=== PATIENT | female | born 1950 | race Caucasian/White ===

== ENCOUNTER → 2016-05-15 | Outpatient (CLI) | payer BC ==
[~2016-05-15] MED LIST: AMBCR125 PO; DRV100 PO; HYCUDL5 PO; LAMO100T16 PO; OXYC1TAB3 PO; PRLSR20 PO; SERT-234 PO; VERA180T15 PO
[2016-05-15 17:20] LABS: THYROID STIMULATING HORMONE 1.38 uIu/ml (0.300-4.500)
== END | disposition home or self-care (01) ==
LOC: C.LABBC 12:57
PROVIDERS: ATTEND Psychiatry & Neurology Child & Adolescent Psychiatry
DX: F33.1 Major depressive disorder, recurrent, moderate (principal)

== ENCOUNTER → 2016-08-01 | Outpatient (CLI) | payer BC ==
[~2016-08-01] MED LIST changes: -OXYC1TAB3 PO
[2016-08-01 14:12] LABS: HEMATOCRIT 41.5 % (37-47); MEAN CELL VOLUME 83.2 fL (80-100); MEAN CORPUSCULAR HEMOGLOBIN 29.3 pg (25-34); MEAN CORPUSCULAR HGB CONC 35.2 g/dl (32-36); MEAN PLATELET VOLUME 9.6 fL (7.4-10.4); PLATELET COUNT 265 K/uL (130-400); RED BLOOD COUNT 4.99 M/uL (4.2-5.4); WHITE BLOOD COUNT 4.84 K/uL (4.8-10.8)
[2016-08-01 14:30] LABS: ALT/SGPT 37 U/L (12-78); BLOOD UREA NITROGEN 13 mg/dl (7-18); BUN/CREATININE RATIO 12.5 (10-20); CALCIUM 8.7 mg/dl (8.5-10.1); CARBON DIOXIDE 26 mmol/L (21-32); CHLORIDE 109 mmol/L (98-107); CHOLESTEROL 223 mg/dl (0-200); GLUCOSE 97 mg/dl (70-99); POTASSIUM 3.5 mmol/L (3.5-5.1); SODIUM 143 mmol/L (136-145); TRIGLYCERIDES 127 mg/dl (0-150); VERY LOW DENSITY LIPOPROT CALC 25 mg/dl
[2016-08-01 14:37] LABS: ALB/GLOB RATIO 1.2 (0.9-2); ALKALINE PHOSPHATASE 106 U/L (45-117); AST/SGOT 19 U/L (15-37); CHOLESTEROL/HDL RATIO 2.8; HDL CHOLESTEROL 81 mg/dl; LDL CHOLESTEROL CALCULATED 117 mg/dl
== END | disposition home or self-care (01) ==
LOC: C.LABBC 10:45
PROVIDERS: ATTEND Family Medicine
DX: E78.00 Pure hypercholesterolemia, unspecified (principal); E03.9 Hypothyroidism, unspecified; M79.7 Fibromyalgia; I10 Essential (primary) hypertension

== ENCOUNTER → 2016-08-07 | Outpatient (CLI) | payer BC ==
[2016-08-07 19:05] LABS: URINE APPEARANCE CLEAR (CLEAR); URINE BILIRUBIN NEG (NEG); URINE COLOR YELLOW; URINE EPITHELIAL CELL AUTO 20-30 /lpf (0-5); URINE NITRITE POS (NEG); URINE SPECIFIC GRAVITY 1.025 (1.000-1.030); UROBILINOGEN NEG (NEG)
[2016-08-07 19:18] LABS: MANUAL MICROSCOPIC REQUIRED? NO; REVIEW REQ? NO
== END | disposition home or self-care (01) ==
LOC: C.LABSPEC 17:58
PROVIDERS: ATTEND Family Medicine
DX: R35.0 Frequency of micturition (principal)

== ENCOUNTER → 2017-01-01 | Outpatient (CLI) | payer BC ==
--- NOTE | 2017-01-01 15:39 | MAMMOGRAPHY REPORT ---
BILATERAL DIGITAL SCREENING MAMMOGRAM WITH CAD: 01/01/2017 CLINICAL HISTORY: Routine screening. Patient has no complaints. TECHNIQUE: Current study was also evaluated with a Computer Aided Detection (CAD) system. Bilateral CC and MLO views were obtained. COMPARISON: Comparison is made to exams dated: 01/10/2014 mammogram, 08/25/2012 mammogram, 06/13/2011 ma mmogram, 05/20/2010 mammogram, 05/07/2009 mammogram - [facility], and 05/19/2008 and 1 06/01/2006. BREAST COMPOSITION: The tissue of both breasts is heterogeneously dense, which may obscure small mas ses. FINDINGS: No suspicious masses, calcifications, or areas of architectural distortion are noted in ei ther breast. There has been no significant interval change compared to prior exams. IMPRESSION: ACR BI-RADS CATEGORY 1: NEGATIVE There is no mammographic evidence of malignancy. A 1 year screening mammogram is recommended. The pa tient will receive written notification of the results. Approximately 10% of breast cancers are not detected with mammography. A negative mammographic report should not delay biopsy if a clinically suggestive mass is present. Alejandra Cervantes M.D. /:01/01/2017 15:00:31 Marketing Sales Consultant: Jackie OCHOA(Silvana)(Nidhi)([place]), [facility] letter sent: Normal 1/2 BI-RADS Code: ACR BI-RADS Category 1: Negative
== END | disposition home or self-care (01) ==
LOC: C.MAMM 13:56
PROVIDERS: ATTEND Family Medicine
DX: Z12.31 Encounter for screening mammogram for malignant neoplasm of breast (principal)

== ENCOUNTER → 2017-04-16 | Outpatient (CLI) | payer BC | END | disposition home or self-care (01) | LOC: C.MAMM 11:27 | PROVIDERS: ATTEND Family Medicine | DX: M81.0 Age-related osteoporosis without current pathological fracture (principal); M85.88 Other specified disorders of bone density and structure, other site ==

== ENCOUNTER → 2017-05-05 | Outpatient (CLI) | payer BC | END | disposition home or self-care (01) | LOC: C.LABBC 12:51 | PROVIDERS: ATTEND Family Medicine | DX: M81.0 Age-related osteoporosis without current pathological fracture (principal) ==

== ENCOUNTER → 2017-06-01 | Outpatient (CLI) | payer BC | END | disposition home or self-care (01) | LOC: C.LAB1850 13:01 | PROVIDERS: ATTEND Internal Medicine Rheumatology | DX: E61.8 Deficiency of other specified nutrient elements (principal); M80.00XA Age-related osteoporosis with current pathological fracture, unspecified site, initial encounter for fracture ==

== ENCOUNTER → 2017-06-11 | Outpatient (CLI) | payer BC | END | disposition home or self-care (01) | LOC: C.LABBC 14:21 | PROVIDERS: ATTEND Internal Medicine Rheumatology | DX: E61.8 Deficiency of other specified nutrient elements (principal); M80.00XA Age-related osteoporosis with current pathological fracture, unspecified site, initial encounter for fracture; X58.XXXA Exposure to other specified factors, initial encounter ==

== ENCOUNTER → 2017-07-30 | Outpatient (CLI) | payer BC ==
--- NOTE | 2017-07-30 14:37 | DIAGNOSTIC IMAGING REPORT ---
L FEMUR 2 VIEWS, L KNEE 4 OR MORE, L COMPARISON VIEWS CLINICAL HISTORY: LEFT FEMUR PAIN COMPARISON STUDY: Left femur and left knee 01/04/2014. FINDINGS: Mild cartilage space narrowing within the left hip and tiny marginal osteophytes. This is consistent with mild osteoarthritis. The visualized pelvic bones are intact. No fracture or dislocation within the left femur or left knee. Stable benign appearing cartilaginous lesion within the distal left femur. This measures 3.5 cm. The bones remain osteopenic. No knee effusion. Subchondral sclerosis and lucency at the patellar facet. This is consistent with chondromalacia. IMPRESSION: 1. No fractures identified within the left femur or left knee. 2. Mild left hip osteoarthritis. 3. Stable benign-appearing cartilaginous lesion within the distal left femur. 4. Patellar chondromalacia. This is also unchanged. Electronically signed by: Ion Romo M.D. 07/30/2017 2:36 PM Dictated Date/Time: 07/30/2017 2:32 PM
== END | disposition home or self-care (01) ==
LOC: C.RDSM 15:18
PROVIDERS: ATTEND Physician Assistant
DX: R52 Pain, unspecified (principal); M17.10 Unilateral primary osteoarthritis, unspecified knee; M25.562 Pain in left knee; M94.9 Disorder of cartilage, unspecified; M22.42 Chondromalacia patellae, left knee

== ENCOUNTER → 2017-11-24 | Outpatient (CLI) | payer BC ==
--- NOTE | 2017-11-24 11:06 | DIAGNOSTIC IMAGING REPORT ---
MRI OF THE BRAIN WITHOUT CONTRAST CLINICAL HISTORY: Increased intensity and frequency of migraines now with aura COMPARISON STUDY: June 27, 2015 FINDINGS: Sagittal T1, axial diffusion, proton density and T2 weighted axial, coronal FLAIR, and axial T1-weighted images were acquired. No intra or extra-axial mass lesions are visualized Axial diffusion-weighted images reveal no evidence of acute or subacute infarction. There is no evidence of ventricular dilatation. Proton density T2-weighted and FLAIR images reveal no significant intraparenchymal signal abnormality. There are no abnormal flow voids. IMPRESSION: 1. No acute intracranial findings 2. No evidence of intracranial mass 3. No evidence of acute or subacute infarction Electronically signed by: Richard Bermudez M.D. 11/24/2017 11:05 AM Dictated Date/Time: 11/24/2017 10:58 AM
== END | disposition home or self-care (01) ==
LOC: C.MRI 09:57
PROVIDERS: ATTEND Family Medicine
DX: G43.109 Migraine with aura, not intractable, without status migrainosus (principal)

== ENCOUNTER 2021-10-03 16:50 | Inpatient (IN) ==
[2021-10-03 18:16] LABS: Basophils # (auto) 0.02 K/uL (0-0.2); Basophils % (auto) 0.1 %; Eosinophils # (auto) 0.03 K/uL (0-0.5); Eosinophils % (auto) 0.2 %; Hematocrit (blood only) 34.5 % (37-47); Hemoglobin 11.7 g/dL (12.0-16.0); Immature Granulocytes # (auto) 0.04 K/uL (0.00-0.02); Immature Granulocytes % (auto) 0.3 %; Lymphocytes # (auto) 1.28 K/uL (1.2-3.4); Lymphocytes % (auto) 8.6 %; Mean Corpuscular Hemoglobin 26.1 pg (25-34); Mean Corpuscular Hgb Conc 33.9 g/dL (32-36); Mean Corpuscular Volume 76.8 fL (80-100); Mean Platelet Volume 9.1 fL (7.4-10.4); Monocytes # (auto) 0.94 K/uL (0.11-0.59); Monocytes % (auto) 6.3 %; Neutrophils # (auto) 12.55 K/uL (1.4-6.5); Neutrophils % (auto) 84.5 %; Platelet Count 363 K/uL (130-400); RDW Coefficient of Variation 16.4 % (11.5-14.5); RDW Standard Deviation 46.1 fL (36.4-46.3); Red Blood Count 4.49 M/uL (4.2-5.4); White Blood Count 14.86 K/uL (4.8-10.8)
[2021-10-03] MEDS ORDERED: ONDANSETRON INJ 2 MG/ML 2 ML VIAL IV STA (18:30)
[2021-10-03] MEDS ORDERED: MoRPHine SULFATE 4 MG/ML 1 ML CARP\\VIAL IV STA (18:30)
[2021-10-03] MEDS ORDERED: SODIUM CHLORIDE 0.9% 500 ML IV SCH (18:30)
--- NOTE | 2021-10-03 18:30 | Emergency Department Note ---
History of Present Illness General Chief complaint: Abdominal Pain Stated complaint: DIVERTICULITIS AND HALLUCINATIONS Time Seen by Provider: 10/03/21 18:18 Source: patient History of Present Illness Provider complaint: Abdominal pain Onset (ago): day(s) Location: abdomen Pain Consistency: + constant Maximum Pain Intensity: 9 Quality: + sharp Exacerbated By: + movement Associated symptoms: + loss of appetite; no chest pain, no cough, no fever/chills, no headaches, no nausea/vomiting or no shortness of breath This is a 71-year-old female who presents with 6 days of abdominal pain. She states initially it started in the left lower quadrant but now she feels it across the entire abdomen. She describes it as sharp. She states it is worse when she moves around. She rates it a 9 out of 10 in severity. It is associated with some diarrhea without hematochezia. She was seen here 5 days a go and diagnosed with diverticulitis. She was placed on Augmentin which she is now taking. She states that she has had no appetite and has not really been eating very much. She has not nauseous or vomiting. She did have a low-grade temperature of 99.1. She denies any cough or cold symptoms, chest pain, shortness of breath or urinary symptoms. She is here today because she feels her pain is getting worse. The patient denies any hallucinations but her states that 2 days ago she was talking to people who were not there. She denies any headache. Home Medications Medication Instructions Recorded Confirmed Type buspirone 15 mg tablet 15 mg PO BID tab 12/18/18 10/03/21 History duloxetine 60 mg capsule,delayed 60 mg PO BID #60 cap 12/18/18 10/03/21 History release zolpidem 12.5 mg tablet,extended 12.5 mg PO HS PRN #30 tab 05/30/19 10/03/21 Rx release,multiphase prazosin 2 mg capsule 2 mg PO HS 08/22/20 10/03/21 History valacyclovir 1 gram tablet 2,000 mg PO BID PRN 10/03/20 10/03/21 History (Valtrex) levothyroxine 100 mcg tablet See Rx Instructions .ROUTE 12/14/20 10/03/21 Rx .COMPLEX #90 tablet cyclobenzaprine 5 mg tablet 5 mg PO DAILY PRN #30 tab 02/25/21 10/03/21 Rx omeprazole 20 mg capsule,delayed 20 mg PO BID #180 cap 06/10/21 10/03/21 Rx release atorvastatin 10 mg tablet See Rx Instructions .ROUTE 06/13/21 10/03/21 Rx .COMPLEX #90 tab fremanezumab-vfrm 225 mg/1.5 mL 225 mg SQ MONTHLY 30 Days #1.5 ml 06/28/21 10/03/21 Rx subcutaneous syringe (Ajovy Syringe) azelastine 137 mcg (0.1 %) nasal 2 spray INTRANASAL BID PRN ml 07/01/21 10/03/21 History spray aerosol lamotrigine 100 mg tablet 100 mg PO BID 07/01/21 10/03/21 History (Lamictal) lamotrigine 25 mg tablet (Lamictal) 25 mg PO QAM tab 07/01/21 10/03/21 History multivitamin (Daily Multi-Vitamin) 1 tab PO QAM 07/01/21 10/03/21 History Amitiza 8 mcg capsule 8 mcg PO BID #60 cap NS 08/15/21 10/03/21 Rx (lubiprostone) amoxicillin 875 mg-potassium 1 tab PO BID #20 tab 09/28/21 10/03/21 Rx clavulanate 125 mg tablet calcium carbonate 600 mg-vitamin 1 tab PO QPM 10/03/21 10/03/21 History D3 5 mcg (200 unit) tablet verapamil 200 mg capsule 24hr 200 mg PO QAM 10/03/21 10/03/[address],ext.release Allergies Allergy/AdvReac Type Severity Reaction Status Date / Time lisinopril AdvReac Mild Cough Verified 10/03/21 19:06 Past Med/Surg History Medical History Acid reflux Anxiety and depression Cervical radiculopathy Disc degeneration, lumbar Fibromyalgia History of TMJ disorder PHYSICAL THERAPY TO TREAT Hyperlipidemia Hypertension Hypothyroidism IBS (irritable bowel syndrome) Insomnia Migraine Polyarthritis Positive colorectal cancer screening using Cologuard test Surgical History History of anesthesia reaction WOKE UP IN MIDDLE OF COLONOSCOPY/EXTREME PAIN (DONE AT [facility]) History of appendectomy History of colonoscopy History of ear surgery RT EAR DRUM REPLACED History of hysterectomy History of tonsillectomy History of tooth extraction Hx of melanoma excision LEFT ARM Family History Mother Ovarian cancer Depression Gastroesophageal reflux disease Poliomyelitis Father No pertinent family history Family history of reaction to anesthesia VERY SLOW TO WAKE UP/HALLUCINATIONS Sister Family history of diabetes mellitus Denies family history of Prostate cancer Myocardial infarction Breast cancer Colorectal cancer Social History Smoking Status: Never smoker Age Started Using Tobacco: 21; Age Quit Using Tobacco: 31; packs per day: 0.5; Years Smoked: 10; Number of Years Since Quit: 34; Second Hand Exposure: No; Hx Alcohol Use: No Hx Substance Use: No Preferred Language: Setswana Communication Ability: Effective Visual Impairment: No Limitations Hearing Ability: Hard of Hearing Keyliner Required: No Beliefs That Will Affect Care: None marital status: Current Living Situation: Spouse current occupational status: employed current occupation: ARTIST Feels Safe at Home: Yes Childhood Exposure to Second-Hand Smoke: No during the past year weight has: increased > 10 lbs Dental Care, Regularly: Yes Physical Activity Frequency: Does not Exercise Seatbelt Use: always Sunscreen Use: Yes Assistive Devices: Glasses Review of Systems See HPI for pertinent positives & negatives. and A total of 10 systems reviewed and were otherwise negative Physical Exam Vital Signs Vital Signs - 24 hr 10/03/21 17:00 10/03/21 18:43 10/03/21 18:57 Temperature 36.8 C Temperature Source Temporal Artery Scan Pulse Rate 82 Pulse Rate [Apical] 81 80 Pulse Rhythm [Apical] Regular Pulse Strength [Apical] Normal Respiratory Rate 16 20 16 Respiratory Effort / Characteristics Non-Labored Spontaneous Respiratory Depth Normal Blood Pressure 115/70 Blood Pressure [Right Arm] 138/66 124/61 Blood Pressure Mean 85 Blood Pressure Mean [Right Arm] 90 82 Blood Pressure Position [Right Arm] Sitting Pulse Oximetry 99 96 95 Oxygen Delivery Method Room Air Room Air Room Air Sepsis Recent Fever Within 48 Hours No Sepsis New/Unexplained Change in Mental Status N/A Sepsis Action Taken by Nursing No Action Required 10/03/21 20:53 Temperature Temperature Source Pulse Rate Pulse Rate [Apical] 86 Pulse Rhythm [Apical] Pulse Strength [Apical] Respiratory Rate 18 Respiratory Effort / Characteristics Respiratory Depth Blood Pressure Blood Pressure [Right Arm] 140/73 Blood Pressure Mean Blood Pressure Mean [Right Arm] 95 Blood Pressure Position [Right Arm] Pulse Oximetry 94 Oxygen Delivery Method Room Air Sepsis Recent Fever Within 48 Hours Sepsis New/Unexplained Change in Mental Status Sepsis Action Taken by Nursing Constitutional: Vital signs reviewed. Eyes: Pupils are equal round reactive to light. Conjunctiva are noninjected. ENT: Pharynx is clear without erythema or exudate. Mucous membranes are dry. Neck supple without meningeal signs. Respiratory: Clear to auscultation bilaterally. Breath sounds are equal bilaterally. Cardiovascular: Regular rate and rhythm. No rubs or gallops. GI: Soft, nondistended with tenderness in the left lower quadrant and upper abdomen. No guarding. Bowel sounds are present. Musculoskeletal: No peripheral edema. Integumentary: No cyanosis. or jaundice. Neurological: The patient is awake and alert. No focal deficits. Psychiatric: Normal affect. Course Administered Medications Sodium Chloride (Nss) 500 mls @ 80 mls/hr IV .[id number] DAR Stop: 11/02/21 18:29 Last Admin: 10/03/21 18:42 Dose: 80 mls/hr Documented by: [id number] Discontinued Medications Piperacillin Sod/Tazobactam Sod (Zosyn) 4.5 gm in 120 mls @ 240 mls/hr IV NOW ONE Stop: 10/03/21 20:41 Last Admin: 10/03/21 20:18 Dose: 240 mls/hr Documented by: [id number] Ioversol (Optiray 320 100ml) 94 ml IV ONCE ONE Stop: 10/03/21 19:35 Last Admin: 10/03/21 19:34 Dose: 94 ml Documented by: [id number] Morphine Sulfate (Morphine Sulfate 4 Mg/Ml 1 Ml Carp\Vial) 4 mg IV NOW STA Stop: 10/03/21 18:31 Last Admin: 10/03/21 18:42 Dose: 4 mg Documented by: [id number] Morphine Sulfate (Morphine Sulfate 2 Mg/Ml Carp) 2 mg IV NOW STA Stop: 10/03/21 20:13 Last Admin: 10/03/21 20:17 Dose: 2 mg Documented by: [id number] Ondansetron HCl (Ondansetron Inj 2 Mg/Ml 2 Ml Vial) 4 mg IV NOW STA Stop: 10/03/21 18:31 Last Admin: 10/03/21 18:42 Dose: 4 mg Documented by: [id number] Medical Decision Making Differential Diagnosis Diverticulitis, abscess, perforation, colitis, peritonitis, dehydration Medical Records Attestation: I reviewed the patient's medical records. I did perform a limited focused review of portions of the patient's old chart on the electronic medical record. The patient was seen here on the fourth for abdominal pain. She was diagnosed with diverticulitis based on CT scanning and placed on Augmentin. Home Medications Current Medication List: was personally reviewed by ga Laboratory Data Attestation: I reviewed the patient's lab results. Result diagrams: 10/03/21 17:35 10/03/21 17:35 Lab Results 10/03/21 10/03/21 10/03/21 Range/Units 17:35 17:35 17:35 WBC 14.86 H (4.8-10.8) K/uL RBC 4.49 (4.2-5.4) M/uL Hgb 11.7 L (12.0-16.0) g/dL Hct 34.5 L (37-47) % MCV 76.8 L (80-100) fL MCH 26.1 (25-34) pg MCHC 33.9 (32-36) g/dL RDW Std Deviation 46.1 (36.4-46.3) fL RDW Coeff of Sandra 16.4 H (11.5-14.5) % Plt Count 363 (130-400) K/uL MPV 9.1 (7.4-10.4) fL Immature Gran % (Auto) 0.3 % Neut % (Auto) 84.5 % Lymph % (Auto) 8.6 % Rains % (Auto) 6.3 % Eos % (Auto) 0.2 % Baso % (Auto) 0.1 % Neut # (Auto) 12.55 H (1.4-6.5) K/uL Lymph # (Auto) 1.28 (1.2-3.4) K/uL Rains # (Auto) 0.94 H (0.11-0.59) K/uL Eos # (Auto) 0.03 (0-0.5) K/uL Baso # (Auto) 0.02 (0-0.2) K/uL Immature Gran # (Auto) 0.04 H (0.00-0.02) K/uL Sodium 138 (136-145) mmol/L Potassium 2.7 L (3.5-5.1) mmol/L Chloride 104 (98-107) mmol/L Carbon Dioxide 26 (21-32) mmol/L Anion Gap 8 (3-11) BUN 17 (6-23) mg/dl Creatinine 1.26 H (0.6-1.2) mg/dl Est Cr Clr Drug Dosing 39.0 ml/min Est GFR ( Amer) 50.0 ml/min Est GFR (Non-Af Amer) 43.1 ml/min BUN/Creatinine Ratio 13.5 (10-20) Glucose 105 H (70-99(Fasting)) mg/dl Calcium 8.9 (8.5-10.1) mg/dl Total Bilirubin 0.5 (0.2-1.0) mg/dl AST 21 (13-39) U/L ALT 15 (7-52) U/L Alkaline Phosphatase 49 (34-104) U/L Total Protein 6.4 (6.0-8.3) gm/dl Albumin 3.5 (3.4-5.0) gm/dl Globulin 2.9 (2.5-4.0) gm/dl Albumin/Globulin Ratio 1.2 (0.9-2) Lipase 4 L (11-82) U/L Urine Color Urine Appearance (Clear) Urine pH (4.5-7.5) Ur Specific Douds (1.000-1.030) Urine Protein (Negative) Urine Glucose (UA) (Negative) Urine Ketones (Negative) Urine Blood (Negative) Urine Nitrite (Negative) Urine Bilirubin (Negative) Urine Urobilinogen (Negative) Ur Leukocyte Esterase (Negative) SARS-CoV-2, RNA, NAAT NEGATIVE (NEGATIVE) 10/03/21 Range/Units 19:53 WBC (4.8-10.8) K/uL RBC (4.2-5.4) M/uL Hgb (12.0-16.0) g/dL Hct (37-47) % MCV (80-100) fL MCH (25-34) pg MCHC (32-36) g/dL RDW Std Deviation (36.4-46.3) fL RDW Coeff of Sandra (11.5-14.5) % Plt Count (130-400) K/uL MPV (7.4-10.4) fL Immature Gran % (Auto) % Neut % (Auto) % Lymph % (Auto) % Rains % (Auto) % Eos % (Auto) % Baso % (Auto) % Neut # (Auto) (1.4-6.5) K/uL Lymph # (Auto) (1.2-3.4) K/uL Rains # (Auto) (0.11-0.59) K/uL Eos # (Auto) (0-0.5) K/uL Baso # (Auto) (0-0.2) K/uL Immature Gran # (Auto) (0.00-0.02) K/uL Sodium (136-145) mmol/L Potassium (3.5-5.1) mmol/L Chloride (98-107) mmol/L Carbon Dioxide (21-32) mmol/L Anion Gap (3-11) BUN (6-23) mg/dl Creatinine (0.6-1.2) mg/dl Est Cr Clr Drug Dosing ml/min Est GFR ( Amer) ml/min Est GFR (Non-Af Amer) ml/min BUN/Creatinine Ratio (10-20) Glucose (70-99(Fasting)) mg/dl Calcium (8.5-10.1) mg/dl Total Bilirubin (0.2-1.0) mg/dl AST (13-39) U/L ALT (7-52) U/L Alkaline Phosphatase (34-104) U/L Total Protein (6.0-8.3) gm/dl Albumin (3.4-5.0) gm/dl Globulin (2.5-4.0) gm/dl Albumin/Globulin Ratio (0.9-2) Lipase (11-82) U/L Urine Color Yellow Urine Appearance Clear (Clear) Urine pH 6.0 (4.5-7.5) Ur Specific Douds 1.023 (1.000-1.030) Urine Protein Negative (Negative) Urine Glucose (UA) Negative (Negative) Urine Ketones Negative (Negative) Urine Blood Negative (Negative) Urine Nitrite Negative (Negative) Urine Bilirubin Negative (Negative) Urine Urobilinogen Negative (Negative) Ur Leukocyte Esterase Negative (Negative) SARS-CoV-2, RNA, NAAT (NEGATIVE) Imaging Data Radiologist's Impression: Abdomen/Pelvis CT 10/03/21 18:30 CT abd pelvis IV con only CLINICAL HISTORY: divertic eval for abscess/perf TECHNIQUE: Helical axial images of the abdomen and pelvis were obtained and displayed. Automated dose lowering techniques and/or adjustment according to patient size were utilized for this exam. This exam was performed with intravenous contrast. CT DOSE: 281.49 mGy.cm COMPARISON: Comparison is made to CT abdomen pelvis 09/28/2021 FINDINGS: Lower chest: No acute abnormality Liver: Unremarkable. No focal lesions are seen. Gallbladder and biliary tree: Prominence of the gallbladder is seen, similar to prior exam. No intra- or extrahepatic biliary ductal dilation. Pancreas: Unremarkable, no focal lesions. Spleen: Unremarkable. Adrenals: Unremarkable. Kidneys and ureters: Parapelvic cysts are seen bilaterally. Bladder: Unremarkable. There is preservation of a fat plane between the bladder and the region of diverticulitis. No evidence of colovesicular fistula. Reproductive organs: Patient is status post hysterectomy. Bowel: Findings of diverticulitis are again seen without wall thickening and surrounding stranding. Compared to the prior exam, there has developed a ill- defined rim enhancing peritoneal gas and fluid collection measuring approximately 7 x 1.3 cm. Lymph nodes Retroperitoneal: Subcentimeter lymph nodes are noted. Mesenteric: Unremarkable. Pelvic: Unremarkable. Peritoneum: In addition to the fluid collection about the focus of diverticulitis, there is also pneumoperitoneum which is new from prior exam. Vessels: Minimal calcifications are seen. Abdominal wall: Unremarkable. Bones: Degenerative changes in the visualized spine. IMPRESSION: Interval development of organizing abscess about the focus of sigmoid diverticulitis. There is contained and uncontained free air compatible with perforation. No evidence of colovesicular fistula. ACT 112: Negative or not required by law. Electronically signed by: Jackson Hester M.D. 10/03/2021 7:59 PM ECG Data Attestation: I personally reviewed and interpreted this ECG as follows: Indication: + other (Hypokalemia) Rate (beats per minute): 87 Rhythm: + normal sinus ECG Intervals/blocks: + Normal QRS ECG ST segments: no ST elevation ECG Findings: no PVCs or no Peaked T waves MDM Narrative I did evaluate the patient as noted above. IV access was established. I did treat the patient with IV normal saline, morphine and Zofran. I did order a urine analysis. I did order and review the patient's blood work as noted in the electronic medical record. Her white blood cell count is elevated 14.86 which is increased from 5 days ago. Her hemoglobin is 11.7. This is slightly down from 12.6 on the fourth. CMP demonstrates a potassium of 2.7. Her creatinine is slightly increased at 1.26 with a BUN of 17. Glucose is 105. Lipase is not elevated. I did order a CT of the abdomen and pelvis. I did review the images myself as well as the radiology report as described above. She has diverticulitis with perforation and abscess with pneumoperitoneum. I did immediately consult surgery who saw the patient here in the emergency department . They did not feel the patient required immediate operative repair and did not feel the abscess was amenable to percutaneous drainage. They recommended IV antibiotics with Zosyn. I did discuss the test results with the patient and her . I did treat the patient with Zosyn 4.5 g IV. I did give her additional morphine IV for pain. She was given IV KCl for hypokalemia. I did order an personally reviewed the twelve-lead EKG as described above. She has no peaked T waves, dysrhythmia or widening of the QRS. The case was discussed with the case resolution specialist and the hospitalist was informed. Impression & Plan Diverticulitis of large intestine with perforation and abscess, Pneumoperitoneum, Acute hypokalemia Discharge Plan Visit Data Chief Complaint: Abdominal Pain Stated Complaint: DIVERTICULITIS AND HALLUCINATIONS ED Provider: Troy Leung Discharge Problem: Diverticulitis of large intestine with perforation and abscess, Pneumoperitoneum, Acute hypokalemia Patient Disposition: Being Evaluated by Hospitalist Forms Stand Alone Forms: My [facility] [employer] Prescriptions Prescriptions: No Action zolpidem 12.5 mg tablet,ext release multiphase 12.5 mg PO HS PRN (Reason: insomnia) Qty: 30 RF: 0 levothyroxine 100 mcg tablet See Rx Instructions .ROUTE .COMPLEX Qty: 90 RF: 3 cyclobenzaprine 5 mg tablet 5 mg PO DAILY PRN (Reason: muscle spasm) Qty: 30 RF: 6 omeprazole 20 mg capsule,delayed release(DR/EC) 20 mg PO BID Qty: 180 RF: 1 atorvastatin 10 mg tablet See Rx Instructions .ROUTE .COMPLEX Qty: 90 RF: 1 Ajovy Syringe 225 mg/1.5 mL syringe 225 mg SQ MONTHLY 30 Days Qty: 1.5 RF: 5 lubiprostone [Amitiza] 8 mcg capsule 8 mcg PO BID Qty: 60 RF: 2 azelastine 137 mcg (0.1 %) aerosol,spray 2 spray intranasal BID PRN (Reason: Allergic Symptoms) RF: 0 lamotrigine [Lamictal] 100 mg tablet 100 mg PO BID RF: 0 lamotrigine [Lamictal] 25 mg tablet 25 mg PO QAM RF: 0 multivitamin [Daily Multi-Vitamin] Tablet 1 tab PO QAM RF: 0 buspirone 15 mg tablet 15 mg PO BID RF: 0 duloxetine 60 mg capsule,delayed release(DR/EC) 60 mg PO BID Qty: 60 RF: 0 amoxicillin-pot clavulanate 875-125 mg tablet 1 tab PO BID Qty: 20 RF: 0 calcium carbonate-vitamin D3 [Calcium + D] 600 mg-5 mcg (200 unit) Tablet 1 tab PO QPM RF: 0 verapamil 200 mg capsule, [address] 200 mg PO QAM RF: 0 prazosin 2 mg Capsule 2 mg PO HS RF: 0 valacyclovir [Valtrex] 1 gram tablet 2,000 mg PO BID PRN (Reason: Cold Sores) RF: 0 Referrals Referrals: Hilary Alvarez MD [Primary Care Provider] - Discharge Problem: Diverticulitis of large intestine with perforation and abscess Qualifiers: Diverticulitis bleeding: unspecified bleeding status Qualified Code(s): K57.20 - Diverticulitis of large intestine with perforation and abscess without bleeding
[2021-10-03 18:48] LABS: Albumin Globulin Ratio 1.2 (0.9-2); Albumin Level 3.5 gm/dl (3.4-5.0); Bilirubin,Total 0.5 mg/dl (0.2-1.0); Calcium 8.9 mg/dl (8.5-10.1); Globulin 2.9 gm/dl (2.5-4.0); Potassium 2.7 mmol/L (3.5-5.1); Total Protein 6.4 gm/dl (6.0-8.3)
[2021-10-03 19:24] LABS: BUN Creatinine Ratio 13.5 (10-20); Est GFR (Non-African American) 43.1 ml/min
[2021-10-03] MEDS ORDERED: OPTIRAY 320 100ml IV ONE (19:34)
--- NOTE | 2021-10-03 20:01 | CT Scan Report ---
CT abd pelvis IV con only CLINICAL HISTORY: divertic eval for abscess/perf TECHNIQUE: Helical axial images of the abdomen and pelvis were obtained and displayed. Automated dose lowering techniques and/or adjustment according to patient size were utilized for this exam. This e xam was performed with intravenous contrast. CT DOSE: 281.49 mGy.cm COMPARISON: Comparison is made to CT abdomen pelvis 09/28/2021 FINDINGS: Lower chest: No acute abnormality Liver: Unremarkable. No focal lesions are seen. Gallbladder and biliary tree: Prominence of the gallbladder is seen, similar to prior exam. No intra- or extrahepatic biliary ductal dilation. Pancreas: Unremarkable, no focal lesions. Spleen: Unremarkable. Adrenals: Unremarkable. Kidneys and ureters: Parapelvic cysts are seen bilaterally. Bladder: Unremarkable. There is preservation of a fat plane between the bladder and the region of div erticulitis. No evidence of colovesicular fistula. Reproductive organs: Patient is status post hysterectomy. Bowel: Findings of diverticulitis are again seen without wall thickening and surrounding stranding. C ompared to the prior exam, there has developed a ill-defined rim enhancing peritoneal gas and fluid c ollection measuring approximately 7 x 1.3 cm. Lymph nodes Retroperitoneal: Subcentimeter lymph nodes are noted. Mesenteric: Unremarkable. Pelvic: Unremarkable. Peritoneum: In addition to the fluid collection about the focus of diverticulitis, there is also pneu moperitoneum which is new from prior exam. Vessels: Minimal calcifications are seen. Abdominal wall: Unremarkable. Bones: Degenerative changes in the visualized spine. IMPRESSION: Interval development of organizing abscess about the focus of sigmoid diverticulitis. There is contai deisi and uncontained free air compatible with perforation. No evidence of colovesicular fistula. ACT 112: Negative or not required by law. Electronically signed by: Jackson Hester M.D. 10/03/2021 7:59 PM
[2021-10-03 20:05] LABS: Appearance Urine Clear (Clear); Bilirubin Urine Negative (Negative); Blood Urine Negative (Negative); Color Urine Yellow; Glucose Urine UA Negative (Negative); Ketones Urine Negative (Negative); Leukocyte Esterase Urine Negative (Negative); Nitrite Urine Negative (Negative); Protein Urine Negative (Negative); Specific Gravity Urine 1.023 (1.000-1.030); Urobilinogen Urine Negative (Negative)
[2021-10-03] MEDS ORDERED: PIPERACILLIN/TAZOBACTAM 4.5 GM/120 ML BAG IV ONE (20:12)
[2021-10-03] MEDS ORDERED: MoRPHine SULFATE 2 MG/ML CARP IV STA (20:12)
[2021-10-03] MEDS ORDERED: POTASSIUM CHLORIDE / WTR 10 MEQ/100 ML PLCT IV ONE (20:17)
--- NOTE | 2021-10-03 20:43 | History & Physical Report ---
Date of Service October 03, 2021 Assessment & Plan (1) Diverticulitis of large intestine with perforation and abscess: Plan: 71 yo F PMH GERD, anxiety/depression, fibromyalgia, HLD, HTN, hypothyroidism, IBS, previous positive colon cancer screening via Cologuard in 2020 presenting with abdominal pain. Acute sigmoid diverticulitis -CTAP- sigmoid diverticulitis w/ 7 x 1.3 cm abscess, contained + uncontained free air consistent with perforation, no fistula noted -Currently not septic. Afebrile, HDS. -Surgery consulted- recommending conservative management with abx, do not feel her abscess is amenable to drainage at this time -NPO, mIVF -Zofran PRN -Pain regimen- standing Tylenol 1000 mg IV q8h, morphine 2mg IV q4h PRN moderate pain, Dilaudid 1mg IV q4h PRN severe pain -Continue Zosyn. Anticipate at least 2-3 days of IV abx Hypokalemia -K 2.7 on admission, likely due to reduced PO intake -Admission EKG normal -Repleted in ED -BMP and Mg in AM Auditory hallucinations -Episode of auditory hallucination 2 days prior was likely mild delirium secondary to acute infection -Currently mentating at baseline -Continue to monitor- encourage reorientation GERD -Holding home omeprazole -Famotidine 20 mg IV BID in hospital Anxiety -Continue home buspirone -Continue home duloxetine HLD -Continue home atorvastatin HTN -Continue home verapamil Hypothyroidism -Continue home levothyroxine Insomnia -Continue home prazosin -Home Ambien PRN FENGI: NPO, mIVF Code status: DNR/DNI DVT ppx: Lovenox daily Isolation: None Dispo: Medical/surgical (2) Acute hypokalemia: (3) Hypothyroidism: (4) Hypertension: (5) Hypercholesterolemia: (6) Anxiety: (7) Acid reflux: History of Present Illness Chief Complaint: Abdominal pain Primary Care Provider: Hilary Alvarez MD 71 yo F PMH GERD, anxiety/depression, fibromyalgia, HLD, HTN, hypothyroidism, IBS, previous positive colon cancer screening via Cologuard in 2020 presenting with abdominal pain. Pain initially began 2.5-3 weeks ago, starting in LLQ and progressing to diffusely across the abdomen- sharp, typically 8/10 severity, worsened by movement, associated with nausea, chills, reduced PO tolerance. No fever, chest pain, dyspnea, diarrhea, emesis, syncope. Pt was seen in ER on 09/28 with CTAP revealing sigmoid diverticulitis- discharged home on Augmentin from ER. Since then pt's abdominal pain has continued without improvement on Augmentin and she has not eaten/drank much at all over past few days. Currently reports 7/10 abdominal pain and some nausea. Pt's states 2 days prior she was talking to people who were not present. Pt's last colonoscopy was in 2020, is due for repeat screen in 2023. ED course- arrived hemodynamically stable, afebrile. Given IV fluids, Zosyn, morphine for pain. WBC 15, K 2.7 and repleted. Repeat CTAP showed development of abscess and perforation. Allergies Allergy/AdvReac Type Severity Reaction Status Date / Time lisinopril AdvReac Mild Cough Verified 10/03/21 19:06 Home Medications Medication Instructions Recorded Confirmed Type buspirone 15 mg tablet 15 mg PO BID tab 12/18/18 10/03/21 History duloxetine 60 mg capsule,delayed 60 mg PO BID #60 cap 12/18/18 10/03/21 History release zolpidem 12.5 mg tablet,extended 12.5 mg PO HS PRN #30 tab 05/30/19 10/03/21 Rx release,multiphase prazosin 2 mg capsule 2 mg PO HS 08/22/20 10/03/21 History valacyclovir 1 gram tablet 2,000 mg PO BID PRN 10/03/20 10/03/21 History (Valtrex) levothyroxine 100 mcg tablet See Rx Instructions .ROUTE 12/14/20 10/03/21 Rx .COMPLEX #90 tablet cyclobenzaprine 5 mg tablet 5 mg PO DAILY PRN #30 tab 02/25/21 10/03/21 Rx omeprazole 20 mg capsule,delayed 20 mg PO BID #180 cap 06/10/21 10/03/21 Rx release atorvastatin 10 mg tablet See Rx Instructions .ROUTE 06/13/21 10/03/21 Rx .COMPLEX #90 tab fremanezumab-vfrm 225 mg/1.5 mL 225 mg SQ MONTHLY 30 Days #1.5 ml 06/28/21 10/03/21 Rx subcutaneous syringe (Ajovy Syringe) azelastine 137 mcg (0.1 %) nasal 2 spray INTRANASAL BID PRN ml 07/01/21 10/03/21 History spray aerosol lamotrigine 100 mg tablet 100 mg PO BID 07/01/21 10/03/21 History (Lamictal) lamotrigine 25 mg tablet (Lamictal) 25 mg PO QAM tab 07/01/21 10/03/21 History multivitamin (Daily Multi-Vitamin) 1 tab PO QAM 07/01/21 10/03/21 History Amitiza 8 mcg capsule 8 mcg PO BID #60 cap NS 08/15/21 10/03/21 Rx (lubiprostone) amoxicillin 875 mg-potassium 1 tab PO BID #20 tab 09/28/21 10/03/21 Rx clavulanate 125 mg tablet calcium carbonate 600 mg-vitamin 1 tab PO QPM 10/03/21 10/03/21 History D3 5 mcg (200 unit) tablet verapamil 200 mg capsule 24hr 200 mg PO QAM 10/03/21 10/03/[address],ext.release Past Med/Surg History Medical History Acid reflux Anxiety and depression Cervical radiculopathy Disc degeneration, lumbar Fibromyalgia History of TMJ disorder PHYSICAL THERAPY TO TREAT Hyperlipidemia Hypertension Hypothyroidism IBS (irritable bowel syndrome) Insomnia Migraine Polyarthritis Positive colorectal cancer screening using Cologuard test Surgical History History of anesthesia reaction WOKE UP IN MIDDLE OF COLONOSCOPY/EXTREME PAIN (DONE AT [facility]) History of appendectomy History of colonoscopy History of ear surgery RT EAR DRUM REPLACED History of hysterectomy History of tonsillectomy History of tooth extraction Hx of melanoma excision LEFT ARM Family History Mother Ovarian cancer Depression Gastroesophageal reflux disease Poliomyelitis Father No pertinent family history Family history of reaction to anesthesia VERY SLOW TO WAKE UP/HALLUCINATIONS Sister Family history of diabetes mellitus Denies family history of Prostate cancer Myocardial infarction Breast cancer Colorectal cancer Social History Smoking Status: Never smoker Age Started Using Tobacco: 21; Age Quit Using Tobacco: 31; packs per day: 0.5; Years Smoked: 10; Number of Years Since Quit: 34; Second Hand Exposure: No; Hx Alcohol Use: No Hx Substance Use: No Preferred Language: Malagasy Communication Ability: Effective Visual Impairment: No Limitations Hearing Ability: Hard of Hearing Hand Trimmer Required: No Beliefs That Will Affect Care: None marital status: Current Living Situation: Spouse current occupational status: employed current occupation: ARTIST Feels Safe at Home: Yes Safety Concerns: Feels Safe At This Time Childhood Exposure to Second-Hand Smoke: No during the past year weight has: increased > 10 lbs Dental Care, Regularly: Yes Physical Activity Frequency: Does not Exercise Seatbelt Use: always Sunscreen Use: Yes Assistive Devices: None Review of Systems Review of Systems: Per HPI Physical Exam Constitutional: WD/WN, vitals as above Eyes: no conjunctival abnormality ENMT: Ears: no hearing impairment and no external ear abnormality Mouth: no oropharynx abnormality Mildly dry mucous membranes Neck: trachea midline Respiratory: normal respiratory effort, lungs clear to auscultation Cardiovascular: Rate/Rhythm: regular rate and regular rhythm Gastrointestinal (Abdomen): Soft, slightly distended, diffusely tender to light palpation greatest in LLQ, tender to percussion as well. No rebound tenderness or guarding. Normal bowel sounds. Musculoskeletal: No calf tenderness Skin: no rashes Neurologic: moves all extremities Psychiatric: A+Ox3, euthymic affect Results & Data Results & Data ([facility]) Vital Signs (Past 12 Hours) Vital Signs Temp Pulse Pulse Resp BP BP Pulse Ox 10/03/21 18:57 80 16 124/61 95 10/03/21 18:43 81 20 138/66 96 10/03/21 17:00 36.8 C 82 16 115/70 99 Supervising Physician Co-Signing Physician Notes Attending addendum: I have physically seen this patient, have supervised the medical residents activities, and agree with the H&P unless as otherwise noted. Assessment and Plan: Diverticulitis large intestine with perforation and abscess- NPO LR at 80 mils per hour Zosyn 4.5 g IV every 8 hours Zofran 4 mg IV every 6 hours as needed Famotidine 20 mg IV every 12 hours Surgery consulted Hypokalemia- Potassium 2.7 on admission IV replacement and recheck labs in a.m. Follow BMP and magnesium levels GERD- Hold oral omeprazole Famotidine 20 mg IV twice daily Remaining orders and notations as noted Resident Activity Tracking Resident Involvement: Resident Care Provided Care Provided: Adult Hospital Medicine (1) Diverticulitis of large intestine with perforation and abscess Diverticulitis bleeding: unspecified bleeding status Qualified Code(s): K57.20 - Diverticulitis of large intestine with perforation and abscess without bleeding
--- NOTE | 2021-10-03 20:45 | Surgery Consultation ---
Date of Consultation October 03, 2021 Assessment & Plan (1) Diverticulitis of large intestine with perforation and abscess: I discussed with the treating emergency room physician and he is having the patient admitted on the hospitalist service. From a surgical perspective we recommend proceeding as follows: Provide analgesics Provide antiemetics Implement n.p.o. status. I did discuss with the patient that she may have an occasional ice chip to keep her oral mucosa moist. Provide IV fluid for hydration, providing supplemental potassium Follow serial laboratories Initiate antibiotics. The patient has received her first dose of Zosyn in the emergency department at the time of my interview I discussed the case with my attending physician Dr. Champion and he does not feel that the collection noted on the CT scan is amendable to percutaneous drainage and we will merely employ conservative measures as described above. I discussed with the patient that we would like to avoid emergency surgery as this would likely require a colostomy. I also discussed with the patient that we will monitor serial abdominal exams as well as serial laboratories and if the patient fails to clinically improve we may consider repeat imaging of her abdomen. I also discussed with the patient that I suspect that she will require hospitalization for several days. Additional recommendations be forthcoming based on her clinical course as it unfolds We will continue to follow along with the patient is hospitalized Supervising Physician Co-Signing Physician Notes Dr. Championplan for nonoperative management for now. Ice only for 48 hours then slowly advance diet beginning with clear liquids Continue her IV antibiotics. We will repeat her CT scan at some point depending on her progress Patient is stable to present time History of Present Illness Reason for Consultation: Diverticulitis with intra-abdominal abscess History of Present Illness This is a 71-year-old female who notes that she was seen in the emergency department on 09/28/2021. Prior to that visit the patient reported some nons pecific abdominal pain for several weeks. During the patient's visit on 09/28/[address] scan of the abdomen and pelvis that showed mild wall thickening the sigmoid colon with pericolonic inflammation was suggestive of acute diverticulitis. It is nowhere the mention that during this visit she did have labs were CBC revealed white blood cell count, hemoglobin, hematocrit, and platelet count were all normal. Patient's chemistry profile at that time showed sodium was 139 with a potassium of 3.2. Her BUN and creatinine were noted to be normal. The patient was discharged from the emergency department on antibiotics in the form of Augmentin. The patient notes that she has been compliant with her antibiotics and has not missed any doses. She represented to the emergency department today secondary to worsening abdominal pain. Patient says that the pain is markedly worse than what she was experienced during her prior emergency department visit. She said the pain is primary located in the left lower quadrant but radiates across the lower portion of her abdomen to the right side. She denies any palliative factors. She notes that the pain is worse with palpation. She has not had any nausea or vomiting. She does report low-grade temperatures at home of approximately 99. In addition she reports a poor appetite. She said that her most recent bowel movement was several days ago and was small however she notes that this is normal for her. She denies any hematochezia or melena. She does note that she has had prior abdominal surgeries in the form of a hysterectomy and an appendectomy. Today in the emergency department patient had labs and imaging which I independently reviewed. CT scan of the abdomen and pelvis showed interval development of an organizing abscess measuring about 7 x 1.3 cm. This collection was near the sigmoid colon. It contained uncontained free air compatible with diverticular perforation. Labs included a CBC were white blood cell count has risen to 14.8. Her hemoglobin and hematocrit are 11.7 and 34.5. Platelet count was noted to be normal. Chemistry profile showed sodium was 138 with a potassium of 2.7. BUN and creatinine were 17 and 1.2. There is no significant elevation of patient's LFTs. Her lipase was also not elevated. A urinalysis was performed and was not indicative of infection. A COVID test was performed and was noted to be negative. It is nowhere the mention that patient's most recent colonoscopy was on 02/18/2021. During this procedure the patient did have a polyp removed. Pathology from this procedure showed the patient had findings consistent with chronic colitis. There is no mention of any diverticular disease on this study. At the time of my interview the patient was resting comfortably in bed and she was in no distress. She did note that as long as she lied still her abdomen did not hurt but was markedly worse with any attempts to palpate her abdomen. Allergies Allergy/AdvReac Type Severity Reaction Status Date / Time lisinopril AdvReac Mild Cough Verified 10/03/21 19:06 Home Medications Medication Instructions Recorded Confirmed Type buspirone 15 mg tablet 15 mg PO BID tab 12/18/18 10/03/21 History duloxetine 60 mg capsule,delayed 60 mg PO BID #60 cap 12/18/18 10/03/21 History release zolpidem 12.5 mg tablet,extended 12.5 mg PO HS PRN #30 tab 05/30/19 10/03/21 Rx release,multiphase prazosin 2 mg capsule 2 mg PO HS 08/22/20 10/03/21 History valacyclovir 1 gram tablet 2,000 mg PO BID PRN 10/03/20 10/03/21 History (Valtrex) levothyroxine 100 mcg tablet See Rx Instructions .ROUTE 12/14/20 10/03/21 Rx .COMPLEX #90 tablet cyclobenzaprine 5 mg tablet 5 mg PO DAILY PRN #30 tab 02/25/21 10/03/21 Rx omeprazole 20 mg capsule,delayed 20 mg PO BID #180 cap 06/10/21 10/03/21 Rx release atorvastatin 10 mg tablet See Rx Instructions .ROUTE 06/13/21 10/03/21 Rx .COMPLEX #90 tab fremanezumab-vfrm 225 mg/1.5 mL 225 mg SQ MONTHLY 30 Days #1.5 ml 06/28/21 10/03/21 Rx subcutaneous syringe (Ajovy Syringe) azelastine 137 mcg (0.1 %) nasal 2 spray INTRANASAL BID PRN ml 07/01/21 10/03/21 History spray aerosol lamotrigine 100 mg tablet 100 mg PO BID 07/01/21 10/03/21 History (Lamictal) lamotrigine 25 mg tablet (Lamictal) 25 mg PO QAM tab 07/01/21 10/03/21 History multivitamin (Daily Multi-Vitamin) 1 tab PO QAM 07/01/21 10/03/21 History Amitiza 8 mcg capsule 8 mcg PO BID #60 cap NS 08/15/21 10/03/21 Rx (lubiprostone) amoxicillin 875 mg-potassium 1 tab PO BID #20 tab 09/28/21 10/03/21 Rx clavulanate 125 mg tablet calcium carbonate 600 mg-vitamin 1 tab PO QPM 10/03/21 10/03/21 History D3 5 mcg (200 unit) tablet verapamil 200 mg capsule 24hr 200 mg PO QAM 10/03/21 10/03/[address],ext.release Patient History Medical History Acid reflux Anxiety and depression Cervical radiculopathy Disc degeneration, lumbar Fibromyalgia History of TMJ disorder PHYSICAL THERAPY TO TREAT Hyperlipidemia Hypertension Hypothyroidism IBS (irritable bowel syndrome) Insomnia Migraine Polyarthritis Positive colorectal cancer screening using Cologuard test Surgical History History of anesthesia reaction WOKE UP IN MIDDLE OF COLONOSCOPY/EXTREME PAIN (DONE AT [facility]) History of appendectomy History of colonoscopy History of ear surgery RT EAR DRUM REPLACED History of hysterectomy History of tonsillectomy History of tooth extraction Hx of melanoma excision LEFT ARM Family History Mother Ovarian cancer Depression Gastroesophageal reflux disease Poliomyelitis Father No pertinent family history Family history of reaction to anesthesia VERY SLOW TO WAKE UP/HALLUCINATIONS Sister Family history of diabetes mellitus Denies family history of Prostate cancer Myocardial infarction Breast cancer Colorectal cancer Social History Smoking Status: Never smoker Age Started Using Tobacco: 21; Age Quit Using Tobacco: 31; packs per day: 0.5; Years Smoked: 10; Number of Years Since Quit: 34; Second Hand Exposure: No; Hx Alcohol Use: No Hx Substance Use: No Preferred Language: Slovenian Communication Ability: Effective Visual Impairment: No Limitations Hearing Ability: Hard of Hearing Money Manager Required: No Beliefs That Will Affect Care: None marital status: Current Living Situation: Spouse current occupational status: employed current occupation: ARTIST Feels Safe at Home: Yes Safety Concerns: Feels Safe At This Time Childhood Exposure to Second-Hand Smoke: No during the past year weight has: increased > 10 lbs Dental Care, Regularly: Yes Physical Activity Frequency: Does not Exercise Seatbelt Use: always Sunscreen Use: Yes Assistive Devices: Glasses Review of Systems Constitutional: + fever (Low-grade); no chills Eyes: no diplopia Ear, Nose, Mouth, Throat: no ear pain Respiratory: no cough and no dyspnea Cardiovascular: no chest pain Gastrointestinal: as per Subjective / HPI and + abdominal pain; no nausea and no vomiting Genitourinary: no dysuria Musculoskeletal: no back pain Integumentary: no rash Neurologic: no localized weakness Physical Exam Constitutional: WD/WN, vitals as above Eyes: no conjunctival abnormality ENMT: Ears: no hearing impairment and no external ear abnormality Mouth: no oropharynx abnormality Neck: trachea midline Respiratory: normal respiratory effort, lungs clear to auscultation Cardiovascular: Rate/Rhythm: regular rate and regular rhythm Gastrointestinal (Abdomen): Patient's abdomen is soft and nondistended. It is nonrigid. Bowel sounds are hypoactive. Patient did have marked tenderness with palpation in the left lower quadrant with even light palpation. She did have pain with palpation in the other regions her abdomen but not to the severity that was noted in the left lower quadrant. Rebound tenderness was noted however no guarding was noted. Musculoskeletal: No calf tenderness Skin: no rashes Neurologic: moves all extremities Psychiatric: A+Ox3, euthymic affect Results & Data ([facility]) Vital Signs (Past 12 Hours) Vital Signs Temp Pulse Pulse Resp BP BP Pulse Ox 10/03/21 18:57 80 16 124/61 95 10/03/21 18:43 81 20 138/66 96 10/03/21 17:00 36.8 C 82 16 115/70 99 PG Care Time/CCT Total # of Minutes Spent Total Time Spent with Patient: Total time spent is greater than 50% in coordination of care (as documented) at patient's floor/unit and/or counseling patient: Coding Level of Care Code 95216 Inpt Consult Level 5 Diagnoses Diverticulitis of large intestine with perforation and abscess K57.20 Diverticulitis bleeding: unspecified bleeding status (1) Diverticulitis of large intestine with perforation and abscess Diverticulitis bleeding: unspecified bleeding status Qualified Code(s): K57.20 - Diverticulitis of large intestine with perforation and abscess without bleeding
[2021-10-03] MEDS ORDERED: LACTATED RINGER'S 1,000 ML IV SCH (23:13)
[2021-10-03] MEDS ORDERED: ONDANSETRON INJ 2 MG/ML 2 ML VIAL IV PRN (23:13)
[2021-10-03] MEDS ORDERED: MoRPHine SULFATE 2 MG/ML CARP IV PRN (23:13)
[2021-10-03] MEDS ORDERED: AZELASTINE HCL 0.1% NASAL 200 SPRAYS/27,400 MCG BTL PRN (23:13)
[2021-10-03] MEDS ORDERED: CYCLOBENZAPRINE HCL 5 MG TAB PO PRN (23:13)
[2021-10-03] MEDS ORDERED: HYDROmorphone INJ 1 MG/ML SYRINGE IV PRN (23:13)
[2021-10-03] MEDS ORDERED: ZOLPIDEM TARTRATE 10 MG TAB PO PRN (23:13)
[2021-10-04] MEDS: ACETAMINOPHEN 1000 MG/100 ML IV IV SCH ×3 (00:32→15:57)
[2021-10-04] MEDS: ATORVASTATIN 10 MG TAB PO SCH ×2 (00:33→20:32)
[2021-10-04] MEDS: PIPERACILLIN/TAZOBACTAM 3.375 GM in DEXTROSE 5% 100 ML IV SCH ×3 (02:05→18:24)
[2021-10-04] MEDS: ENOXAPARIN INJ 40 MG/0.4 ML SYR SQ SCH ×2 (02:06→20:33)
[2021-10-04] MEDS: LEVOTHYROXINE SODIUM 100 MCG TABLET PO SCH (06:02)
--- NOTE | 2021-10-04 06:54 | Surgery Progress Note ---
Date of Service October 04, 2021 Assessment & Plan Admission and Anticipated Discharge Date Admission Date: October 03, 2021 Subjective Patient is afebrile and her pain has improved She took no pain medication overnight Review of Systems Review of Systems: All systems reviewed & are unremarkable except as noted in HPI & below Physical Exam Physical Exam: Patient is awake and alert Her abdomen is flat and soft she does have some lower abdominal tenderness Constitutional: well developed; no acute distress Eyes: + anicteric sclerae Respiratory: normal respiratory effort; no respiratory distress Cardiovascular: Rate/Rhythm: regular rhythm Musculoskeletal: Head/Neck/Chest: head atraumatic Skin: no rashes, warm and dry Neurologic: awake Psychiatric: Orientation: alert Results & Data ([facility]) Vital Signs (Past 12 Hours) Vital Signs Temp Pulse Resp BP Pulse Ox 10/03/21 23:19 36.9 C 98 H 16 157/77 H 92 10/03/21 21:18 37.3 C 10/03/21 20:53 86 18 140/73 94 10/03/21 18:57 80 16 124/61 95 PG Care Time/CCT Total # of Minutes Spent Total Time Spent with Patient: Total time spent is greater than 50% in coordination of care (as documented) at patient's floor/unit and/or counseling patient: Coding Level of Care Code 71451 Inpt Consult Level 3
[2021-10-04 07:26] LABS: Hematocrit (blood only) 33.9 % (37-47); Hemoglobin 11.2 g/dL (12.0-16.0); Mean Corpuscular Hemoglobin 25.7 pg (25-34); Mean Corpuscular Volume 77.9 fL (80-100); Mean Platelet Volume 8.9 fL (7.4-10.4); Platelet Count 317 K/uL (130-400); RDW Coefficient of Variation 16.5 % (11.5-14.5); RDW Standard Deviation 47.7 fL (36.4-46.3); Red Blood Count 4.35 M/uL (4.2-5.4)
[2021-10-04 07:38] LABS: BUN Creatinine Ratio 16.5 (10-20); Calcium 8.2 mg/dl (8.5-10.1); Creatinine Clr Calc Pharmacy 43.9 ml/min; Est GFR (African American) 63.8 ml/min; Magnesium 1.9 mg/dl (1.7-2.4); Potassium 3.2 mmol/L (3.5-5.1)
[2021-10-04 07:51] LABS: Basophils # (auto) 0.02 K/uL (0-0.2); Basophils % (auto) 0.1 %; Eosinophils % (auto) 0.5 %; Immature Granulocytes # (auto) 0.07 K/uL (0.00-0.02); Immature Granulocytes % (auto) 0.3 %; Lymphocytes # (auto) 1.14 K/uL (1.2-3.4); Lymphocytes % (auto) 5.5 %; Monocytes # (auto) 0.91 K/uL (0.11-0.59); Monocytes % (auto) 4.4 %; Neutrophils # (auto) 18.66 K/uL (1.4-6.5); Neutrophils % (auto) 89.2 %
[2021-10-04] MEDS: lamoTRIgine 25 MG TAB PO SCH (08:38)
[2021-10-04] MEDS: lamoTRIgine 100 MG TAB PO SCH ×2 (08:38→20:32)
[2021-10-04] MEDS: DULoxetine HCL 60 MG CAP PO SCH ×2 (08:38→20:32)
[2021-10-04] MEDS: busPIRone 15 MG TAB PO SCH ×2 (08:39→20:32)
[2021-10-04] MEDS: FAMOTIDINE 20 MG in SYRINGE 3 ML IV SCH ×2 (08:45→20:39)
[2021-10-04] MEDS ORDERED: VERAPAMIL HCL 180 MG TABCR PO SCH (09:30)
[2021-10-04] MEDS: LACTATED RINGER'S 1,000 ML IV SCH ×2 (09:39→18:19)
--- NOTE | 2021-10-04 13:48 | Hospitalist Progress Note ---
Date of Service October 04, 2021 Assessment & Plan (1) Diverticulitis of large intestine with perforation and abscess: Plan: 71 yo F PMH GERD, anxiety/depression, fibromyalgia, HLD, HTN, hypothyroidism, IBS, previous positive colon cancer screening via Cologuard in 2020 presenting with abdominal pain. Acute sigmoid diverticulitis with abscess -CTAP- sigmoid diverticulitis w/ 7 x 1.3 cm abscess, contained + uncontained free air consistent with perforation, no fistula noted Not septic on admission, patient with gradually worsening pain over the preceding week Surgery consulted, discussed 10/04. Abscess while long is thin and not amenabl e to drainage. Not recommended for operative intervention or transfer, recommended to continue medical management but will likely require several days of pain control and IV antibiotics. Repeat CT-ab/pelv if worsening, or interval basedon progress. If improved and doing well will need outpt colonoscopy in 6-8 weeks N.p.o., continue sips and chips and progress to clears once doing well +IVF LR 100 cc/h Continue Tylenol 1 g IV every 8 Previously on morphine and hydromorphone for pain control, patient with some confusion. Converted to hydromorphone scaled analgesia 0.5-1 mg every 4 hours for breakthrough Patient on Augmentin as outpatient. Converted to Zosyn on admission. Continue CBC daily Hypokalemia -K 2.7 on admission, likely due to reduced PO intake -Admission EKG normal -Repleted in ED -Potassium low, additional IV supplementation ordered Magnesium normal 10/04 - Cr at baseline Acute urinary retention In the setting of acute illness, pain, and narcotic use Patient with abdominal discomfort and postvoid greater than 600, decompressed with Gonsales with immediate 650 cc returned. Continue Gonsales for now, voiding trial once medically improving Sensation intact in hands and feet with normal strength ankle dorsiflexion/plantar flexion - Gonsales in place Auditory hallucinations -Episode of auditory hallucination 2 days prior was likely mild delirium secondary to acute infection -Currently mentating at baseline -Continue to monitor- encourage reorientation GERD -Holding home omeprazole -Famotidine 20 mg IV BID in hospital Anxiety -Continue home buspirone -Continue home duloxetine HLD -Continue home atorvastatin HTN -Continue home verapamil, converted to formulary 180 mg equivalent (is on a nonformulary 200 mg dose [employer]) Hypothyroidism -Continue home levothyroxine Insomnia -Continue home prazosin -Home Ambien PRN, dose decreased to 5 mg 12 minimize delirium. May also use melatonin as needed Code status: DNR/DNI DVT ppx: Lovenox daily Isolation: None Dispo: Medical/surgical (2) Acute hypokalemia: (3) Hypothyroidism: (4) Hypertension: (5) Hypercholesterolemia: (6) Anxiety: (7) Acid reflux: (8) Urinary retention: Admission and Anticipated Discharge Date Admission Date: October 03, 2021 Subjective Seen at bedside this morning. Endorses some midline pelvic discomfort and left lower abdominal discomfort. No right-sided tenderness to palpation/rigi dity/rebound, is exquisitely tender to left lower quadrant palpation. Patient does apprehensively guard, but does not have involuntary guarding/muscle spasms. No fever has felt globally unwell and a little bit chilly. No chest pain/chest pressure/shortness of breath/difficulty breathing. Review of Systems Review of Systems: All systems reviewed & are unremarkable except as noted in Subjective Physical Exam Physical Exam: General: Oriented to name, place, and year. Uncomfortable but nontoxic HEENT: Atraumatic, normocephalic. And hearing grossly intact Pulm: CTAB A&P. -wheezes, -rales, -rhonchi. Symmetrical chest rise. No increase in work of breathing. No respiratory distress. Cardiac: Regular, tachycardic, -mrg. Radial pulses intact and symmetrical. Abdominal: Left lower quadrant tenderness, low midline tenderness to palpation. Right abdomen nontender light palpation without rebound/involuntary guarding. Patient is apprehensive to palpation of left quadrant which is with increased tenderness today. Ext: Sensation intact in hands and feet, no saddle anesthesia. Ankle dorsiflexion/plantarflexion intact Results & Data Results & Data ([facility]) Vital Signs (Past 12 Hours) Vital Signs Temp Pulse Resp BP Pulse Ox 10/04/21 08:06 36.5 C 103 H 16 137/75 99 PG Care Time/CCT Total # of Minutes Spent Total Time Spent with Patient: Total time spent is greater than 50% in coordination of care (as documented) at patient's floor/unit and/or counseling patient: Coding Level of Care Code 96517 Subseq Hosp Care Lvl 3 Diagnoses Diverticulitis of large intestine with perforation and abscess K57.20 Diverticulitis bleeding: unspecified bleeding status Acute hypokalemia E87.6 Hypothyroidism E03.9 Hypertension I10 Hypercholesterolemia E78.00 Anxiety F41.9 Acid reflux K21.9 Urinary retention R33.9 (1) Diverticulitis of large intestine with perforation and abscess Diverticulitis bleeding: unspecified bleeding status Qualified Code(s): K57.20 - Diverticulitis of large intestine with perforation and abscess without bleeding
[2021-10-04] MEDS ORDERED: HYDROmorphone INJ 0.5 MG/0.5 ML SYR IV PRN (13:59)
[2021-10-04] MEDS ORDERED: HYDROmorphone INJ 1 MG/ML SYRINGE IV PRN (13:59)
[2021-10-04] MEDS ORDERED: LACTATED RINGER'S 500 ML IV ONE (14:02)
[2021-10-04] MEDS: POTASSIUM CHLORIDE / WTR 10 MEQ/100 ML PLCT IV SCH ×3 (14:23→16:55)
[2021-10-04] MEDS: PRAZOSIN HCL 1 MG CAP PO SCH (20:32)
[2021-10-05] MEDS: ACETAMINOPHEN 1000 MG/100 ML IV IV SCH ×5 (00:07→23:56)
[2021-10-05] MEDS: PIPERACILLIN/TAZOBACTAM 3.375 GM in DEXTROSE 5% 100 ML IV SCH ×3 (01:32→18:33)
--- NOTE | 2021-10-05 05:44 | Billing Data ---
Date of Service October 05, 2021 Coding Level of Care Code 89336 Initial Inpt Care Lvl 3
[2021-10-05] MEDS: LEVOTHYROXINE SODIUM 100 MCG TABLET PO SCH (05:49)
--- NOTE | 2021-10-05 06:08 | Electrocardiogram Report ---
Test Reason : Blood Pressure : / mmHG Vent. Rate : 087 BPM Atrial Rate : 087 BPM P-R Int : 158 ms QRS Dur : 096 ms QT Int : 378 ms P-R-T Axes : 061 -17 038 degrees QTc Int : 454 ms Poor data quality, interpretation may be adversely affected Normal sinus rhythm Normal ECG No previous ECGs available Confirmed by Logan Woodson ([id number]) on 10/05/2021 6:08:10 AM Referred By: REFERRED SELF Confirmed By:Logan Woodson
[2021-10-05 08:31] LABS: Calcium 7.9 mg/dl (8.5-10.1); Creatinine Clr Calc Pharmacy 41.1 ml/min; Est GFR (African American) 58.9 ml/min; Est GFR (Non-African American) 50.8 ml/min; Potassium 3.4 mmol/L (3.5-5.1)
[2021-10-05 08:43] LABS: C Reactive Protein 36.74 mg/dl (0-0.5)
[2021-10-05 08:48] LABS: Basophils # (auto) 0.02 K/uL (0-0.2); Basophils % (auto) 0.1 %; Eosinophils # (auto) 0.07 K/uL (0-0.5); Eosinophils % (auto) 0.4 %; Hematocrit (blood only) 32.7 % (37-47); Hemoglobin 10.5 g/dL (12.0-16.0); Immature Granulocytes # (auto) 0.07 K/uL (0.00-0.02); Immature Granulocytes % (auto) 0.4 %; Lymphocytes # (auto) 0.83 K/uL (1.2-3.4); Lymphocytes % (auto) 4.4 %; Mean Corpuscular Hgb Conc 32.1 g/dL (32-36); Mean Corpuscular Volume 77.9 fL (80-100); Mean Platelet Volume 8.9 fL (7.4-10.4); Monocytes # (auto) 0.87 K/uL (0.11-0.59); Monocytes % (auto) 4.6 %; Neutrophils # (auto) 17.21 K/uL (1.4-6.5); Neutrophils % (auto) 90.1 %; Platelet Count 319 K/uL (130-400); RDW Coefficient of Variation 16.9 % (11.5-14.5); RDW Standard Deviation 48.2 fL (36.4-46.3); White Blood Count 19.07 K/uL (4.8-10.8)
[2021-10-05 08:55] LABS: Base Excess VBG 0.5 mEq/L; Oxygen Saturation VBG 81.9 %; pH VBG 7.43 (7.36-7.41)
[2021-10-05] MEDS: lamoTRIgine 100 MG TAB PO SCH ×2 (09:40→21:32)
[2021-10-05] MEDS: DULoxetine HCL 60 MG CAP PO SCH ×2 (09:40→21:31)
[2021-10-05] MEDS: busPIRone 15 MG TAB PO SCH ×2 (09:40→21:30)
[2021-10-05] MEDS: NSS + 20MEQ KCL 20 MEQ/1,000 ML BAG IV SCH (09:40)
[2021-10-05] MEDS: FAMOTIDINE 20 MG in SYRINGE 3 ML IV SCH ×2 (09:40→22:20)
[2021-10-05] MEDS: lamoTRIgine 25 MG TAB PO SCH (09:40)
[2021-10-05] MEDS: POTASSIUM CHLORIDE / WTR 10 MEQ/100 ML PLCT IV SCH ×4 (09:40→16:12)
--- NOTE | 2021-10-05 10:35 | CT Scan Report ---
CT chest diagnostic wo con CLINICAL HISTORY: hypoxia, ?pna TECHNIQUE: Multidetector row helical CT of the chest was performed. Coronal and sagittal reformations were obtained. Automated dose lowering techniques and/or adjustment according to patient size were u tilized for this exam. CT DOSE: 226.09 mGy.cm Comparison: Comparison is made to CT chest 01/14/2007 FINDINGS: Lungs and pleura: Atelectasis versus scarring is seen in the dependent portions of the lungs. Heart and pericardium: Heart size is normal. No pericardial effusion. Vessels: Unremarkable. Mediastinum and irish: Subcentimeter lymph nodes are seen. Chest wall and lower neck: Unremarkable. Abdomen: Redemonstration of pneumoperitoneum which is also seen on prior CT abdomen pelvis performed 10/03/2021 Bones: Unremarkable. IMPRESSION: Atelectasis is seen. No evidence of pneumonia is noted. ACT 112: Negative or not required by law. Electronically signed by: Jackson Hester M.D. 10/05/2021 10:33 AM
--- NOTE | 2021-10-05 11:44 | Hospitalist Progress Note ---
Date of Service October 05, 2021 Assessment & Plan (1) Diverticulitis of large intestine with perforation and abscess: Plan: 71 yo F PMH GERD, anxiety/depression, fibromyalgia, HLD, HTN, hypothyroidism, IBS, previous positive colon cancer screening via Cologuard in 2020 presenting with abdominal pain. Acute sigmoid diverticulitis -CTAP- sigmoid diverticulitis w/ 7 x 1.3 cm abscess, contained + uncontained free air consistent with perforation, no fistula noted -Currently not septic. Afebrile Leukocytosis is starting to downtrend to 19.0 today CRP 36 Lactate normal -Surgery consulted- recommending conservative management with abx, abscess is not amenable to drainage -NPO, mIVF -Zofran PRN -Pain regimen- standing Tylenol 1000 mg IV q8h, morphine 2mg IV q4h PRN moderate pain, Dilaudid 1mg IV q4h PRN severe pain -Continue Zosyn. Anticipate at least 2-3 days of IV abx Acute hypoxic respiratory failure Patient transiently requiring 4.5 L of oxygen with an episode of green sputum production 10/05 with brief episode of hypotension CT obtained, no evidence of pneumonia or fluid overload ? Brief aspiration event versus mucous plug Continue fluids as above, oxygen weaned back to room air this morning No change in antibiotics indicated at this time Continue incentive spirometry Hypokalemia -K 2.7 on admission, likely due to reduced PO intake Improved to 3.4, additional repletion ordered -Admission EKG normal -Repleted in ED -Trend Auditory hallucinations -Episode of auditory hallucination 2 days prior was likely mild delirium secondary to acute infection -Continue to monitor- encourage reorientation Patient with waxing and waning confusion, does remember some conversation for previous day and then otherwise is intermittently confused.? Metabolic encephalopathy with superimposed delirium Continue to follow and treat acute infection as above No focal neurologic deficits appreciated GERD -Holding home omeprazole -Famotidine 20 mg IV BID in hospital Anxiety -Continue home buspirone -Continue home duloxetine HLD -Continue home atorvastatin HTN -Continue home verapamil Hypothyroidism -Continue home levothyroxine Insomnia -Continue home prazosin -Home Ambien PRN FENGI: NPO, mIVF Code status: DNR/DNI DVT ppx: Lovenox daily Isolation: None Dispo: Medical/surgical (2) Acute hypokalemia: (3) Hypothyroidism: (4) Hypertension: (5) Hypercholesterolemia: (6) Anxiety: (7) Acid reflux: Admission and Anticipated Discharge Date Admission Date: October 03, 2021 Subjective Notified by nursing in morning at signout that patient had episode of borderline hypotension, some thick sputum production and new oxygen requirement to 4.5 L with generally poor appearance. Had not been eating with no reported aspirating at the time. [facility] ordered for evaluation. Patient's blood pressure did improve and was gradually weaned to room air. At bedside assessment patient in no acute distress, feels tired but without fever/chills. Pains intermittently confused. Is aware that she is in the hospital and remembers conversations with provider from previous day, but then also makes comments about not knowing where she is grateful to be on this team. Not oriented to date. No mottling. Does endorse some abdominal discomfort. Denies chest pain, chest pressure, difficulty breathing/shortness of breath at bedside assessment Review of Systems Review of Systems: All systems reviewed & are unremarkable except as noted in Subjective Physical Exam Physical Exam: General: Oriented to name, place, and year. Uncomfortable but nontoxic HEENT: Atraumatic, normocephalic. And hearing grossly intact Pulm: At time morning assessment lungs are clear in the bases, no rales/crackles with moderate to good air movement. Symmetrical chest rise. No increase in work of breathing. No respiratory distress. Cardiac: Regular, tachycardic, -mrg. Radial pulses intact and symmetrical. Abdominal: Left lower quadrant tenderness, low midline tenderness to palpation. Right abdomen nontender light palpation without rebound/involuntary guarding. Ext: Sensation intact in hands and feet, no saddle anesthesia. Ankle dorsiflexion/plantarflexion intact Results & Data Results & Data ([facility]) Vital Signs (Past 12 Hours) Vital Signs Temp Pulse Pulse Resp BP Pulse Ox 10/05/21 10:50 36.9 C 87 18 107/66 90 10/05/21 09:27 79 10/05/21 09:23 36.8 C 87 18 103/52 L 100 10/05/21 07:20 36.5 C 84 18 90/54 L 95 10/05/21 01:30 90 10/05/21 01:15 37.9 C H 102 H 117/65 78 L PG Care Time/CCT Total # of Minutes Spent Total Time Spent with Patient: Total time spent is greater than 50% in coordination of care (as documented) at patient's floor/unit and/or counseling patient: Coding Level of Care Code 81498 Subseq Hosp Care Lvl 3 Diagnoses Diverticulitis of large intestine with perforation and abscess K57.20 Diverticulitis bleeding: unspecified bleeding status Acute hypokalemia E87.6 Hypothyroidism E03.9 Hypertension I10 Hypercholesterolemia E78.00 Anxiety F41.9 Acid reflux K21.9 (1) Diverticulitis of large intestine with perforation and abscess Diverticulitis bleeding: unspecified bleeding status Qualified Code(s): K 57.20 - Diverticulitis of large intestine with perforation and abscess without bleeding
[2021-10-05] MEDS: ATORVASTATIN 10 MG TAB PO SCH (21:30)
[2021-10-05] MEDS: ENOXAPARIN INJ 40 MG/0.4 ML SYR SQ SCH (21:32)
[2021-10-05] MEDS: PRAZOSIN HCL 1 MG CAP PO SCH (21:33)
[2021-10-06] MEDS: NSS + 20MEQ KCL 20 MEQ/1,000 ML BAG IV SCH ×3 (02:16→11:20)
[2021-10-06] MEDS ORDERED: Nursing to Pharmacy Communication SCH (02:30)
[2021-10-06] MEDS: PIPERACILLIN/TAZOBACTAM 3.375 GM in DEXTROSE 5% 100 ML IV SCH ×2 (02:51→11:18)
--- NOTE | 2021-10-06 04:55 | Communication Note ---
Date of Service: October 06, 2021 Received communication from RN at 04:18 that patient had a had an episode of large green, liquid emesis. Shortly thereafter was wheezing. Her oxygen satu ration decreased to 83% on room air. She was started on nasal cannula at 6 L to maintain oxygen saturation. Upon my evaluation, patient had been cleaned up by nursing staff. She was audibly wheezing. Breathing somewhat labored. Saturating well on 6 L. The patient is somnolent, does not respond in any meaningful way to conversation. On physical exam her abdomen is soft, nondistended, she does moan mildly when her abdomen is pressed. Ordered CXR and KUB. Chest x-ray with probable aspiration in left lower lobe. KUB showed dilated small bowel loops, I am concerned she may be developing an early partial small bowel obstruction. At this point will repeat CT abdomen to compare to previous. Patient on Zosyn, which will cover for aspiration pneumonia, will add vancomycin now that she is hospital associated. If CT showing signs of developing SBO, might need NGT to [facility]. Resident Activity Tracking Resident Involvement: Resident Care Provided Care Provided: Adult Hospital Medicine
[2021-10-06] MEDS: LEVOTHYROXINE SODIUM 100 MCG TABLET PO SCH (05:33)
[2021-10-06] MEDS ORDERED: OPTIRAY 320 100ml IV ONE (07:09)
--- NOTE | 2021-10-06 08:13 | XRay Report ---
XR chest 1V portable CLINICAL HISTORY: Wheezing, hypoxia, possible aspiration. COMPARISON STUDY: CT chest from 10/05/2021 TECHNIQUE: 1 view of the chest FINDINGS: Single frontal view of the chest demonstrates the cardiomediastinal silhouette to be within normal li mits. Intraperitoneal air is present in the right hemidiaphragm as seen on the CT. There is left lung atelectasis. The remainder of the lungs are clear. There is no evidence for pleural effusion. There is no evidence for vascular congestion. There is no acute osseous pathology. IMPRESSION: 1. Left lung atelectasis. 2. Pneumoperitoneum is again seen. ACT 112: Negative or not required by law. Electronically signed by: Micheal Neal M.D. 10/06/2021 8:11 AM
--- NOTE | 2021-10-06 08:14 | XRay Report ---
XR KUB/Abdomen 1 view CLINICAL HISTORY: bilious emesis. COMPARISON STUDY: 02/14/2021 TECHNIQUE: 2 supine views of the abdomen FINDINGS: Reason motion artifact is present. There is mild gaseous distention of small bowel loops which are no t well imaged. The findings are suspicious for ileus versus gastroenteritis. Partial small bowel obst ruction cannot be excluded based on this study. There is no evidence for organomegaly or gross intra- abdominal mass. No abnormal calcifications are seen along the course of the urinary tracts bilaterall y. No acute osseous pathology. IMPRESSION: 1. Motion artifact with mild gaseous distention of small bowel loops as described. ACT 112: Negative or not required by law. Electronically signed by: Micheal Neal M.D. 10/06/2021 8:12 AM
--- NOTE | 2021-10-06 08:30 | CT Scan Report ---
CT abd pelvis IV con only CLINICAL HISTORY: bilious emesis, concern for SBO . Diverticulitis and diverticular abscess COMPARISON STUDY: 10/03/2021 CT DOSE: 396.78 mGy.cm TECHNIQUE: Standard CT of the Abdomen and Pelvis was performed with IV contrast. A dose lowering luis eduardo hnique was utilized adhering to the principles of ALARA. Contrast Volume: Optiray 320, 95 ml. The patient did not receive oral contrast. FINDINGS: Lung base: Compared to the previous examination and is seen on the interval CT of the chest, there is left basilar atelectasis present. There are small bilateral pleural effusions are also present. Abdominal cavity: As seen on previous studies, there is again pneumoperitoneum related to perforated diverticular abscess. Liver: There is homogeneous attenuation of the liver parenchyma. There is no evidence for enhancing m ass lesion. Spleen: There is homogeneous attenuation of the splenic parenchyma. There is no enhancing mass lesion . Pancreas: There is homogeneous attenuation of the pancreatic parenchyma. There is no evidence for mas s lesion or peripancreatic fluid collection. Gall Bladder: The gallbladder is grossly distended with no evidence for intraluminal calculi, wall th ickening or pericholecystic edema. Adrenal glands: The adrenal glands are normal in size and attenuation. There is no evidence for enhan cing mass lesion. Kidneys: There is homogeneous attenuation of the renal parenchyma bilaterally. There are bilateral pa rarenal cysts and bilateral hydronephrosis which is most likely physiologic due to a markedly distend ed bladder. No calculi are seen. There is no evidence for enhancing mass. Bowel: There is a small hiatal hernia. Compared to previous examination, mildly to moderately dilated loops of small bowel are seen throughout the abdomen and pelvis which are most characteristic of an ileus. Walled off fluid collection with enhancing wall is again seen superior to the sigmoid colon si te of diverticulitis characteristic of a diverticular abscess. There has increased in size since the previous study. Minimal air is also again seen within this fluid collection. Air bubbles are also pre sent outside of fluid collection along with the extensive pneumoperitoneum present. There is fecal ma terial seen within colon with no evidence for bowel obstruction. Bladder: The bladder is grossly distended. : There is no evidence for pelvic mass or adenopathy. There is no evidence for pelvic ascites. Vasculature: There is no evidence for aneurysmal dilatation of the abdominal aorta. Osseous structures: There is no acute osseous pathology. IMPRESSION: 1. Interval increase in pneumoperitoneum related to bowel perforation due to diverticulitis and diver ticular abscess. 2. Interval increase in size of diverticular abscess. 3. Diffuse small bowel ileus with no definite evidence for small bowel obstruction. 4. Left basilar atelectasis and small bilateral pleural effusions. 5. Additional nonacute findings are delineated above. ACT 112: Negative or not required by law. Electronically signed by: Micheal Neal M.D. 10/06/2021 8:28 AM
[2021-10-06] MEDS: busPIRone 15 MG TAB PO SCH (08:36)
[2021-10-06] MEDS: lamoTRIgine 100 MG TAB PO SCH (08:36)
[2021-10-06] MEDS: lamoTRIgine 25 MG TAB PO SCH (08:36)
[2021-10-06] MEDS: ACETAMINOPHEN 1000 MG/100 ML IV IV SCH (08:36)
[2021-10-06] MEDS: DULoxetine HCL 60 MG CAP PO SCH (08:36)
[2021-10-06] MEDS: FAMOTIDINE 20 MG in SYRINGE 3 ML IV SCH (08:38)
[2021-10-06 08:44] LABS: Basophils # (auto) 0.01 K/uL (0-0.2); Basophils % (auto) 0.1 %; Eosinophils # (auto) 0.08 K/uL (0-0.5); Eosinophils % (auto) 0.4 %; Hematocrit (blood only) 33.8 % (37-47); Hemoglobin 10.8 g/dL (12.0-16.0); Immature Granulocytes # (auto) 0.08 K/uL (0.00-0.02); Immature Granulocytes % (auto) 0.4 %; Lymphocytes # (auto) 0.43 K/uL (1.2-3.4); Lymphocytes % (auto) 2.3 %; Mean Corpuscular Volume 78.2 fL (80-100); Mean Platelet Volume 8.9 fL (7.4-10.4); Monocytes # (auto) 0.66 K/uL (0.11-0.59); Monocytes % (auto) 3.5 %; Neutrophils # (auto) 17.35 K/uL (1.4-6.5); Neutrophils % (auto) 93.3 %; Platelet Count 378 K/uL (130-400); RDW Coefficient of Variation 17.2 % (11.5-14.5); RDW Standard Deviation 49.5 fL (36.4-46.3); Red Blood Count 4.32 M/uL (4.2-5.4); White Blood Count 18.61 K/uL (4.8-10.8)
[2021-10-06 08:58] LABS: Albumin Globulin Ratio 1.1 (0.9-2); Albumin Level 2.7 gm/dl (3.4-5.0); Bilirubin,Total 0.5 mg/dl (0.2-1.0); Calcium 8.2 mg/dl (8.5-10.1); Creatinine Clr Calc Pharmacy 49.7 ml/min; Est GFR (African American) 66.1 ml/min; Globulin 2.5 gm/dl (2.5-4.0); Potassium 3.6 mmol/L (3.5-5.1); Total Protein 5.2 gm/dl (6.0-8.3)
--- NOTE | 2021-10-06 13:14 | Discharge Summary ---
Date of Service October 06, 2021 Admission HPI Per Admitting Provider 71 yo F PMH GERD, anxiety/depression, fibromyalgia, HLD, HTN, hypothyroidism, IBS, previous positive colon cancer screening via Cologuard in 2020 presenting with abdominal pain. Pain initially began 2.5-3 weeks ago, starting in LLQ and progressing to diffusely across the abdomen- sharp, typically 8/10 severity, worsened by movement, associated with nausea, chills, reduced PO tolerance. No fever, chest pain, dyspnea, diarrhea, emesis, syncope. Pt was seen in ER on 09/28 with CTAP revealing sigmoid diverticulitis- discharged home on Augmentin from ER. Since then pt's abdominal pain has continued without improvement on Augmentin and she has not eaten/drank much at all over past few days. Currently reports 7/10 abdominal pain and some nausea. Pt's states 2 days prior she was talking to people who were not present. Pt's last colonoscopy was in 2020, is due for repeat screen in 2023. ED course- arrived hemodynamically stable, afebrile. Given IV fluids, Zosyn, morphine for pain. WBC 15, K 2.7 and repleted. Repeat CTAP showed development of abscess and perforation. Principal Diagnosis Diverticulitis with abscess and perforation, transferred to [facility] Discharge Exam General: Oriented intermittently. Previously had fluctuating delirium and encephalopathy, at time of bedside assessment is alert to name and intermittently to place but not to month. Infusion is prominent HEENT: Atraumatic, normocephalic. And hearing grossly intact Pulm: Coarse, moderate air movement, on nasal cannula with SPO2 5 L Cardiac: Regular, tachycardic, -mrg. Radial pulses intact and symmetrical. Abdominal: Remains with left lower quadrant tenderness, tympanitic with distention increased today. No rebound from right side, but deep palpation does cause pain in left lower quadrant. No involuntary reflex contractions on palpation Discharge Data Allergies Allergy/AdvReac Type Severity Reaction Status Date / Time lisinopril AdvReac Mild Cough Verified 10/03/21 19:06 Consultations 10/03/21 20:33 ED Decision to Admit Stat 10/06/21 09:10 Radiology Transfer Of Images Stat Ordered Studies 10/03/21 18:30 CT abd pelvis IV con only Stat 10/05/21 07:40 CT chest diagnostic wo con Urgent 10/06/21 06:16 CT abd pelvis IV con only Stat Hospital Course (1) Diverticulitis of large intestine with perforation and abscess: 71 yo F PMH GERD, anxiety/depression, fibromyalgia, HLD, HTN, hypothyroidism, IBS, previous positive colon cancer screening via Cologuard in 2020 presenting with abdominal pain. Acute sigmoid diverticulitis -CTAP- sigmoid diverticulitis w/ 7 x 1.3 cm abscess, contained + uncontained free air consistent with perforation, no fistula noted. Recommended for MM per surgery, IR/surgical intervention not recommended at that time due to length buth small depth of abscess. - Repeat CT-A/P 10/06: pneumoperitoneum, extension of abscess. Discussed w/ supervisor communications and signals surgery recommended for transfer to tertiary care. Accepted at [facility] and transferred ~1145a -Afebrile, normotensive, HR 90s at dc Leukocytosis downtrend to 19 CRP 36 Lactate normal -NPO, mIVF -Zofran PRN -Pain regimen- standing Tylenol 1000 mg IV q8h, morphine 2mg IV q4h PRN moderate pain, Dilaudid 1mg IV q4h PRN severe pain -Continue Zosyn. Acute hypoxic respiratory failure N/V with potential aspiration AM 10/06. Covered with Zosyn. On NC 3-5L with Sp>94% Continue fluids as above, oxygen weaned back to room air this morning Hypokalemia -K 2.7 on admission, likely due to reduced PO intake Improved to 3.4, additional repletion ordered PRN -Admission EKG normal -Repleted in ED -Trend Auditory hallucinations -Episode of auditory hallucination 2 days prior was likely mild delirium secondary to acute infection. -Continue to monitor- encourage reorientation Patient with waxing and waning confusion, does remember some conversation for previous day and then otherwise is intermittently confused Continue to follow and treat acute infection as above No focal neurologic deficits appreciated GERD -Holding home omeprazole -Famotidine 20 mg IV BID in hospital Anxiety -Continue home buspirone -Continue home duloxetine HLD -Continue home atorvastatin HTN -Continue home verapamil Hypothyroidism -Continue home levothyroxine Insomnia -Continue home prazosin -Home Ambien PRN FENGI: NPO, mIVF Code status: DNR/DNI DVT ppx: Lovenox daily Isolation: None Dispo: Medical/surgical (2) Acute hypokalemia: (3) Hypothyroidism: (4) Hypertension: (5) Hypercholesterolemia: (6) Anxiety: (7) Acid reflux: Total Time Total Time Spent Total Time Spent (In Minutes): Time spent day of discharge approximately 70 minutes including review of labs an d images, direct patient care, coordination of transfer, discharge, and documentation Discharge Plan Discharge Items Patient Disposition: Transfer Acute Care Hospital Reason For Visit: DIVERTICULITIS Discharge Diagnosis: Perforated Sigmoid Diverticulitis wiht Abscess Activity: Resume your previous activity Non-emergency contact: Hospitalist Call non-emergency contact if: you have any medication questions and your symptoms worsen Follow-up/Referrals: Hilary Alvarez MD [Primary Care Provider] - Diet: Nothing by Mouth Addtl Attending Provider Instructions: 71 yo F PMH GERD, anxiety/depression, fibromyalgia, HLD, HTN, hypothyroidism, IBS, previous positive colon cancer screening via Cologuard in 2020 presenting with abdominal pain. Acute sigmoid diverticulitis -CTAP- sigmoid diverticulitis w/ 7 x 1.3 cm abscess, contained + uncontained free air consistent with perforation, no fistula noted. Recommended for MM per surgery, IR/surgical intervention recommended - Repeat CT-A/P 10/06: pneumoperitoneum, extension of abscess. Discussed w/ supervisor communications and signals weston recommended for transfer to tertiary care. Accepted at [facility] -Afebrile, normotensive, HR 90s Leukocytosis downtrend to 19 CRP 36 Lactate normal -NPO, mIVF -Zofran PRN -Pain regimen- standing Tylenol 1000 mg IV q8h, morphine 2mg IV q4h PRN moderate pain, Dilaudid 1mg IV q4h PRN severe pain -Continue Zosyn. Acute hypoxic respiratory failure N/V with potential aspiration AM 6/12. Covered with Zosyn. On NC 3-5L with Sp>94% Continue fluids as above, oxygen weaned back to room air this morning Hypokalemia -K 2.7 on admission, likely due to reduced PO intake Improved to 3.4, additional repletion ordered PRN -Admission EKG normal -Repleted in ED -Trend Auditory hallucinations -Episode of auditory hallucination 2 days prior was likely mild delirium secondary to acute infection -Continue to monitor- encourage reorientation Patient with waxing and waning confusion, does remember some conversation for previous day and then otherwise is intermittently confused.? Metabolic encephalopathy with superimposed delirium Continue to follow and treat acute infection as above No focal neurologic deficits appreciated GERD -Holding home omeprazole -Famotidine 20 mg IV BID in hospital Anxiety -Continue home buspirone -Continue home duloxetine HLD -Continue home atorvastatin HTN -Continue home verapamil Hypothyroidism -Continue home levothyroxine Insomnia -Continue home prazosin -Home Ambien PRN FENGI: NPO, mIVF Code status: DNR/DNI DVT ppx: Lovenox daily Isolation: None Dispo: Medical/surgical Pending Studies at Discharge: No Stand-Alone Forms: My [facility] [employer] Skilled Items Patient informed of condition?: Yes DNR: Yes Discharge Level of Care: Other Communicable Disease: No Discharge Prognosis: Deteriorating Lines: Peripheral IV Urinary Catheter: No Medications and DC Order Prescriptions: Continued zolpidem 12.5 mg tablet,ext release multiphase 12.5 mg PO HS PRN (Reason: insomnia) Qty: 30 RF: 0 levothyroxine 100 mcg tablet See Rx Instructions .ROUTE .COMPLEX Qty: 90 RF: 3 cyclobenzaprine 5 mg tablet 5 mg PO DAILY PRN (Reason: muscle spasm) Qty: 30 RF: 6 omeprazole 20 mg capsule,delayed release(DR/EC) 20 mg PO BID Qty: 180 RF: 1 atorvastatin 10 mg tablet See Rx Instructions .ROUTE .COMPLEX Qty: 90 RF: 1 Ajovy Syringe 225 mg/1.5 mL syringe 225 mg SQ MONTHLY 30 Days Qty: 1.5 RF: 5 lubiprostone [Amitiza] 8 mcg capsule 8 mcg PO BID Qty: 60 RF: 2 azelastine 137 mcg (0.1 %) aerosol,spray 2 spray intranasal BID PRN (Reason: Allergic Symptoms) RF: 0 lamotrigine [Lamictal] 100 mg tablet 100 mg PO BID RF: 0 lamotrigine [Lamictal] 25 mg tablet 25 mg PO QAM RF: 0 multivitamin [Daily Multi-Vitamin] Tablet 1 tab PO QAM RF: 0 buspirone 15 mg tablet 15 mg PO BID RF: 0 duloxetine 60 mg capsule,delayed release(DR/EC) 60 mg PO BID Qty: 60 RF: 0 calcium carbonate-vitamin D3 600 mg-5 mcg (200 unit) Tablet 1 tab PO QPM RF: 0 verapamil 200 mg capsule, [address] 200 mg PO QAM RF: 0 prazosin 2 mg Capsule 2 mg PO HS RF: 0 valacyclovir [Valtrex] 1 gram tablet 2,000 mg PO BID PRN (Reason: Cold Sores) RF: 0 Discontinued amoxicillin-pot clavulanate 875-125 mg tablet 1 tab PO BID Qty: 20 RF: 0 Discharge Orders: Discharge Order (Routine); Ordered 10/06/21 Ordered By: Manav Castro Admission Data Admit Date/Time: 10/03/21 21:43 Attending Provider: Manav Castro Admit Provider: Lui Mandujano Primary Care Provider: Hilary Alvarez Other Providers: Ramirez Rocha Other Interventions: Discharge Summary Assessment (RN) Last Done: 10/06/21 12:23 Coding Level of Care Code D/C DAY MANAGEMENT >30 MINS Diagnoses Diverticulitis of large intestine with perforation and abscess K57.20 Diverticulitis bleeding: unspecified bleeding status Acute hypokalemia E87.6 Hypothyroidism E03.9 Hypertension I10 Hypercholesterolemia E78.00 Anxiety F41.9 Acid reflux K21.9
== END 2021-10-06 12:31 | disposition short-term general hospital (02) | DRG 391 ==
LOC: ED 16:50 → 3W 21:43 → SUATTDRO 21:43 → 3W 22:12 → 2N 10-05 08:47 → 2S 10-06 09:06

== ENCOUNTER 2024-02-08 09:41 | Observation (INO) ==
--- NOTE | 2024-02-08 10:05 | Emergency Department Note ---
Impression & Plan Altered mental status, Visual hallucinations, Abnormal weight loss, COVID-19 ED Provider Note CHIEF COMPLAINT: Visual hallucinations HISTORY OF PRESENTING ILLNESS: This 73-year-old female patient presents to the emergency department with her for evaluation of visual hallucinations for the past 1.5 days. The patient believes that there are other people in the house when there are not. She also is asking to call her parents even though they are . Her states that she has a history of hallucinations in the past when she has abdominal symptoms or UTIs. She has had a continued cough from her recent COVID infection. No fevers currently. No recent injury, trauma, or falls. The patient was seen at [facility] on 02/24/2024 after having a positive home COVID test. The patient was started on Paxlovid at that time. The patient also saw her PCP on 01/08/2024 for abnormal weight loss. Her labs did not explain the cause of her weight loss per the note and it was presumed that her depression was contributing to her weight loss. The patient had a colonoscopy last year which was negative per the office visit note. The patient had a CT scan of the head as well as a CTA of the head and neck on 06/25/2023 after a fall. The imaging studies showed changes consistent with a contusion, but no underlying fracture. The CTA study showed enlarged mediastinal lymph nodes which are pathologically indeterminate and similar to the 10/05/[address], but no evidence for vascular abnormalities, stenosis, hemorrhage, or ischemia. She is not on any blood thinners. REVIEW OF SYSTEMS: See HPI for pertinent positives and pertinent negatives. ALLERGIES: Lisinopril MEDICATIONS: See below PAST MEDICAL HISTORY: See below PHYSICAL EXAM: VITALS: Vitals are noted on the nurse's note and reviewed by myself. GENERAL: No acute distress, non-diaphoretic. SKIN: Capillary reflex less than 2 seconds. HEAD: No scalp tenderness. No step-offs felt. EARS: Bilateral external auditory canals clear. Bilateral tympanic membranes pearly martinez without erythema or effusion. No hemotympanum. No salinas sign. No mastoid tenderness. EYES: Pupils equal round and reactive to light and accommodation. Conjunctivae without injection, sclerae without icterus. Extraocular movements intact without pain. No nystagmus. NOSE: Patent, turbinates without inflammation or discharge. No sinus tenderness. No septal hematoma or bleeding. FACE: No facial bone tenderness. Full range of motion of the jaw without tenderness. No facial droop. MOUTH: Mucous membranes moist. Uvula midline. Airway patent. Tongue does not deviate. NECK: Supple without nuchal rigidity. Cervical spine is nontender. Full range of motion of the neck without tenderness and normal strength. HEART: Regular rate and rhythm without murmurs gallops or rubs. LUNGS: Clear to auscultation bilaterally without wheezes, rales or rhonchi. No retractions or accessory muscle use. No chest wall tenderness. ABDOMEN: Positive bowel sounds x 4. Normal tympanic percussion. Soft, mildly tender to palpation in the right flank. No obvious masses or organomegaly. No guarding or rebound tenderness. Negative Olivarez sign. No CVA tenderness. MUSCULOSKELETAL: No tenderness of the thoracic or lumbar spine or paraspinal muscles. Full range of motion with normal strength in the bilateral upper and lower extremities for her age. NEURO: The patient was only able to answer simple questions. She goes in and out of orientation during the exam. Normal sensation to light and sharp touch. DIFFERENTIAL DIAGNOSIS: The differential diagnosis includes acute intracranial bleed, CVA, meningitis, encephalitis, mass or mass effect, pneumonia, PE, UTI, pyelonephritis, appendicitis, acute intra-abdominal etiology, malignancy, and others. ED COURSE AND MEDICAL DECISION MAKING: HISTORY FROM INDEPENDENT HISTORIAN: The majority of the history was obtained from the patient's due to her altered mental status MEDICATIONS GIVEN: There is currently a severe shortage of IV fluids. The patient's condition was assessed and did not meet hospital criteria for IV fluid administration at this time. Therefore, IV fluids were not given. MONITOR: Continuous manager cardiac cath: Order was placed for continuous manager cardiac cath. Patient was placed on the manager cardiac cath and continuous pulse ox. Patient was noted to be in normal sinus rhythm at an initial rate of 80 bpm per my interpretation. EKG: EKG was interpreted by myself as normal sinus rhythm at 70 bpm with no acute ST or T wave changes and no significant change compared to her previous EKG. INTERPRETATION OF LABS: I interpreted the labs with full lab results as below in the lab section of this note. Pertinent lab results discussed in the MDM section below. INTERPRETATION OF IMAGING: Imaging studies were interpreted by myself and read by radiology as per the imaging section of this note. CT scan of the head without contrast showed no acute intracranial abnormalities. CTA of the chest with IV contrast was negative for PE, pneumonia, or other acute cardiopulmonary etiology. CT scan of the abdomen pelvis with IV contrast showed healing posterior right 10th and 11th rib fractures, moderate stool within the colon, and trace ascites within the abdomen and pelvis, but no other acute abnormalities. EXTERNAL RECORDS REVIEWED: Records from her express care visit and her most recent PCP visit were reviewed and summarized as above CONSULTATIONS: On-call hospitalist [facility] SUMMARY: I examined the patient. The patient presents to the emergency department with her for evaluation of altered mental status and visual hallucinations for the past 1.5 days. The patient's states that she sometimes gets like this when she has abdominal issues or UTIs. The patient was diagnosed with COVID recently and started on Paxlovid as above and has also been undergoing workup for abnormal weight loss by her PCP. The patient did have a CT/CTA of her head and neck in May 2023 as above. An IV lock was placed and labs were drawn. The patient declined any medication for pain or other symptoms while in the emergency department. There is currently a severe shortage of IV fluids. The patient's condition was assessed and did not meet hospital criteria for IV fluid administration at this time. Therefore, IV fluids were not given. The patient was able to tolerate oral fluids once her imaging studies revealed no evidence for surgical etiology. White blood cell count low at 4.19. Hemoglobin stable at 11. Platelet count normal at 219. aPTT 34, but other coags were normal. Potassium 3.4 and glucose 102, but no other significant abnormalities on the CMP. High-sensitivity troponin normal. Magnesium normal. Lipase normal. TSH normal. Urinalysis was completely normal with no evidence for UTI or blood. CT scan of the head without contrast showed no acute intracranial abnormalities. CTA of the chest with IV contrast was negative for PE, pneumonia, or other acute cardiopulmonary etiology. CT scan of the abdomen pelvis with IV contrast showed healing posterior right 10th and 11th rib fractures, moderate stool within the colon, and trace ascites within the abdomen and pelvis, but no other acute abnormalities. I had a meaningful discussion about this patient with Dr. Flores who agrees with my assessment and the treatment plan. The patient's is concerned about taking her home in light of her symptoms. Given the patient's unremarkable workup, but continued altered mental status and visual hallucinations, it was felt the patient should be admitted for further inpatient evaluation and treatment. I spoke with the on-call hospitalist who agreed to admit the patient for further management. Please refer to their dictation for further details. The patient's care was transferred in stable condition. 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) Hypothyroidism (Chronic) Hypertension (Chronic) Hypercholesterolemia (Chronic) Herpes simplex (Chronic) Classic migraine with aura (Chronic) Chronic rhinitis (Chronic) Chronic bronchitis (Chronic) Chronic back pain (Chronic) Anxiety (Chronic) Allergic rhinitis (Chronic) Medication overuse headache Urinary incontinence Chronic constipation Tubular adenoma Polyarthritis (Chronic) Migraine (Chronic) Insomnia (Chronic) IBS (irritable bowel syndrome) (Chronic) Fibromyalgia (Chronic) Disc degeneration, lumbar (Chronic) Cervical radiculopathy (Chronic) Acid reflux (Chronic) Medical History History of COVID-19 Urinary retention Diverticulitis of large intestine with perforation and abscess History of TMJ disorder Hyperlipidemia Hypertension Hypothyroidism Anxiety and depression Surgical History History of colostomy reversal History of creation of ostomy History of bowel resection S/P left cataract extraction History of anesthesia reaction History of colonoscopy Hx of melanoma excision History of tooth extraction History of ear surgery History of appendectomy History of hysterectomy History of tonsillectomy Family History Mother Ovarian cancer Depression Gastroesophageal reflux disease Poliomyelitis Father No pertinent family history Family history of reaction to anesthesia Sister Family history of diabetes mellitus Denies family history of Prostate cancer Myocardial infarction Breast cancer Colorectal cancer Social History Smoking Status: Former smoker Tobacco Type: Cigarettes Age Started Using Tobacco: 21; Age Quit Using Tobacco: 31; packs per day: 0.5; Second Hand Exposure: No; Do You Dip or Chew Tobacco: No; Hx Alcohol Use: No Hx Substance Use: No Preferred Language: Turkish Communication Ability: Effective Visual Impairment: No Limitations Hearing Ability: Hard of Hearing Medical Laboratory Scientist Required: No Beliefs That Will Affect Care: None marital status: Current Living Situation: Spouse current occupational status: employed current occupation: ARTIST Other Information That Helps Us Care for You: No Feels Safe at Home: Yes Safety Concerns: Feels Safe At This Time Childhood Exposure to Second-Hand Smoke: No Diet: regular Diet Comment: regular during the past year weight has: increased > 10 lbs Dental Care, Regularly: Yes Physical Activity Frequency: Does not Exercise Seatbelt Use: always Sunscreen Use: Yes Assistive Devices: None Allergies Allergies Allergy/AdvReac Type Severity Reaction Status Date / Time lisinopril AdvReac Intermediate Cough Verified 01/28/24 16:20 Home Meds Home Medications Medication Instructions Recorded Confirmed buspirone 15 mg tablet 10 mg PO TID 12/18/18 02/08/24 valacyclovir 1 gram tablet 2,000 mg PO BID PRN Cold Sores 10/03/20 02/08/24 (Valtrex) lamotrigine 100 mg tablet 150 mg PO BID 07/01/21 02/08/24 (Lamictal) multivitamin (Daily Multi-Vitamin 1 tab PO QPM 07/01/21 02/08/24 tablet) ergocalciferol (vitamin D2) 1,250 1,250 mcg PO WK 09/19/22 02/08/24 mcg (50,000 unit) capsule fluvoxamine 50 mg tablet 50 mg PO HS 09/19/22 02/08/24 acetaminophen 500 mg tablet 1,000 mg PO Q6H PRN Pain 06/21/23 02/08/24 (Tylenol Extra Strength) Previous Rx's Medication Instructions Recorded zolpidem 12.5 mg tablet,extended 12.5 mg PO HS PRN insomnia #30 tabs 05/30/19 release,multiphase fremanezumab-vfrm 225 mg/1.5 mL 225 mg (1.5 mL) subcut MONTHLY 30 02/16/23 subcutaneous syringe (MetaIntellovOverhead.fm days #1.5 mL Syringe) rimegepant 75 mg disintegrating 75 mg PO ONCE PRN migraine 02/16/23 tablet (Nurtec ODT) headache #8 tabs levothyroxine 75 mcg tablet 75 mcg PO QAM #90 tabs 07/01/23 omeprazole 20 mg capsule,delayed 20 mg PO BID #180 caps 09/04/23 release verapamil 200 mg capsule 24hr 200 mg PO QAM #30 caps 11/27/[address],ext.release atorvastatin 10 mg tablet 10 mg PO HS #90 tabs 01/25/24 Results & Data (ED) Vital Signs Vital Signs - 24 hr 02/08/24 09:46 02/08/24 10:21 02/08/24 10:22 Temperature 36.1 C L Temperature Source Temporal Artery Scan Pulse Rate 76 74 77 Pulse Rate [Apical] Pulse Rate from SpO2 Sensor 74 Pulse Rhythm Pulse Rhythm [Apical] Pulse Strength [Apical] Respiratory Rate 20 Respiratory Effort / Characteristics Non-Labored Spontaneous Respiratory Depth Normal Respiratory Pattern Regular Blood Pressure 146/86 H Blood Pressure [Left Arm] Blood Pressure Mean 106 Blood Pressure Mean [Left Arm] Blood Pressure Position [Left Arm] Pulse Oximetry 100 96 Oxygen Delivery Method Room Air Sepsis Recent Fever Within 48 Hours No Sepsis New/Unexplained Change in Mental Status N/A Sepsis Action Taken by Nursing No Action Required 02/08/24 10:26 02/08/24 10:30 02/08/24 10:54 Temperature Temperature Source Pulse Rate 72 77 Pulse Rate [Apical] Pulse Rate from SpO2 Sensor Pulse Rhythm Regular Pulse Rhythm [Apical] Pulse Strength [Apical] Respiratory Rate 18 19 Respiratory Effort / Characteristics Respiratory Depth Respiratory Pattern Blood Pressure 158/92 H Blood Pressure [Left Arm] Blood Pressure Mean 122 Blood Pressure Mean [Left Arm] Blood Pressure Position [Left Arm] Pulse Oximetry 96 Oxygen Delivery Method Room Air Sepsis Recent Fever Within 48 Hours Sepsis New/Unexplained Change in Mental Status Sepsis Action Taken by Nursing 02/08/24 11:00 02/08/24 11:00 02/08/24 11:01 Temperature Temperature Source Pulse Rate Pulse Rate [Apical] 71 Pulse Rate from SpO2 Sensor Pulse Rhythm Pulse Rhythm [Apical] Regular Pulse Strength [Apical] Normal Respiratory Rate 16 Respiratory Effort / Characteristics Non-Labored Spontaneous Respiratory Depth Normal Respiratory Pattern Regular Blood Pressure 153/91 H Blood Pressure [Left Arm] 153/91 H Blood Pressure Mean 108 Blood Pressure Mean [Left Arm] 111 Blood Pressure Position [Left Arm] Lying Pulse Oximetry 94 94 Oxygen Delivery Method Room Air Room Air Sepsis Recent Fever Within 48 Hours Sepsis New/Unexplained Change in Mental Status Sepsis Action Taken by Nursing 02/08/24 11:06 02/08/24 11:57 02/08/24 12:03 Temperature Temperature Source Pulse Rate 73 71 70 Pulse Rate [Apical] Pulse Rate from SpO2 Sensor 72 71 70 Pulse Rhythm Pulse Rhythm [Apical] Pulse Strength [Apical] Respiratory Rate 22 22 17 Respiratory Effort / Characteristics Respiratory Depth Respiratory Pattern Blood Pressure 162/91 H Blood Pressure [Left Arm] Blood Pressure Mean 114 Blood Pressure Mean [Left Arm] Blood Pressure Position [Left Arm] Pulse Oximetry 94 98 95 Oxygen Delivery Method Sepsis Recent Fever Within 48 Hours Sepsis New/Unexplained Change in Mental Status Sepsis Action Taken by Nursing 02/08/24 12:12 02/08/24 12:21 02/08/24 12:39 Temperature Temperature Source Pulse Rate 70 71 74 Pulse Rate [Apical] Pulse Rate from SpO2 Sensor 70 71 Pulse Rhythm Pulse Rhythm [Apical] Pulse Strength [Apical] Respiratory Rate 16 15 22 Respiratory Effort / Characteristics Respiratory Depth Respiratory Pattern Blood Pressure 168/97 H Blood Pressure [Left Arm] Blood Pressure Mean 120 Blood Pressure Mean [Left Arm] Blood Pressure Position [Left Arm] Pulse Oximetry 94 95 Oxygen Delivery Method Sepsis Recent Fever Within 48 Hours Sepsis New/Unexplained Change in Mental Status Sepsis Action Taken by Nursing 02/08/24 12:42 02/08/24 13:00 02/08/24 13:09 Temperature Temperature Source Pulse Rate 72 76 Pulse Rate [Apical] Pulse Rate from SpO2 Sensor Pulse Rhythm Pulse Rhythm [Apical] Pulse Strength [Apical] Respiratory Rate 20 20 Respiratory Effort / Characteristics Respiratory Depth Respiratory Pattern Blood Pressure 154/93 H Blood Pressure [Left Arm] Blood Pressure Mean 110 Blood Pressure Mean [Left Arm] Blood Pressure Position [Left Arm] Pulse Oximetry Oxygen Delivery Method Sepsis Recent Fever Within 48 Hours Sepsis New/Unexplained Change in Mental Status Sepsis Action Taken by Nursing Laboratory Data 02/08/24 10:05 02/08/24 10:05 Lab Results 02/08/24 02/08/24 Range/Units 10:05 11:50 WBC 4.19 L (4.8-10.8) K/ul RBC 4.33 (4.20-5.40) M/uL Hgb 11.0 L (12.0-16.0) g/dl Hct 34.6 L (37.0-47.0) % MCV 79.9 L (80.0-100.0) fL MCH 25.4 (25.0-34.0) pg MCHC 31.8 L (32.0-36.0) g/dL RDW Std Deviation 49.4 H (36.4-46.3) fL RDW Coeff of Sandra 17.1 H (11.5-14.5) % Plt Count 219 (130-400) K/uL MPV 9.8 (9.4-12.4) fL Immature Gran % (Auto) 0.7 % Neut % (Auto) 56.6 % Lymph % (Auto) 25.1 % [place] % (Auto) 13.8 % Eos % (Auto) 2.6 % Baso % (Auto) 1.2 % Neut # (Auto) 2.37 (1.40-6.50) K/uL Lymph # (Auto) 1.05 L (1.20-3.40) K/uL [place] # (Auto) 0.58 (0.11-0.59) K/uL Eos # (Auto) 0.11 (0.00-0.50) K/uL Baso # (Auto) 0.05 (0.00-0.20) K/uL Immature Gran # (Auto) 0.03 (0.01-0.20) K/uL PT 11.2 (9.0-12.0) Seconds INR 1.0 (0.9-1.1) APTT 34 H (21-31) Seconds PTT Ratio 1.3 Sodium 138 (136-145) mmol/L Potassium 3.4 L (3.5-5.1) mmol/L Chloride 103 (98-107) mmol/L Carbon Dioxide 28 (21-32) mmol/L Anion Gap 7 (3-11) BUN 11 (6-23) mg/dl Creatinine 1.06 (0.6-1.2) mg/dl Est Cr Clr Drug Dosing 38.9 ml/min eGFR 55.81 BUN/Creatinine Ratio 10.4 (10-20) Glucose 102 H (70-99(Fasting)) mg/dl Calcium 9.5 (8.6-10.3) mg/dl Magnesium 2.0 (1.7-2.4) mg/dl Iron 46 (35-150) mcg/dl TIBC 342 (250-450) mcg/dl Unsaturated IBC 296 (155-355) mcg/dl Transferrin % Sat 13 L (15-50) % Total Bilirubin 0.5 (0.2-1.0) mg/dl AST 17 (13-39) U/L ALT 6 L (7-52) U/L Alkaline Phosphatase 63 (34-104) U/L Troponin I High Sens 7.0 (0-14) pg/ml Total Protein 6.6 (6.0-8.3) gm/dl Albumin 3.7 (3.4-5.0) gm/dl Globulin 2.9 (2.5-4.0) gm/dl Albumin/Globulin Ratio 1.3 (0.9-2) Lipase 40 (11-82) U/L TSH 1.673 (0.300-4.500) uIu/ml Urine Color Yellow Urine Appearance Clear (Clear) Urine pH 7.0 (4.5-7.5) Ur Specific [place] 1.021 (1.000-1.030) Urine Protein Negative (Negative) Urine Glucose (UA) Negative (Negative) Urine Ketones Negative (Negative) Urine Blood Negative (Negative) Urine Nitrite Negative (Negative) Urine Bilirubin Negative (Negative) Urine Urobilinogen Negative (Negative) Ur Leukocyte Esterase Negative (Negative) SARS-CoV-2 (PCR) POSITIVE A (Negative) Influenza Type A (PCR) Negative (Neg) Influenza Type B (PCR) Negative (Neg) RSV (RT-PCR) Negative (Neg) Administered Medications Buspirone HCl (Buspirone 5 Mg Tab) 10 mg PO TID [facility] Stop: 03/09/24 17:14 Last Admin: 02/08/24 18:02 Dose: 10 mg Documented By: [facility] Enoxaparin Sodium (Enoxaparin Inj 40 Mg/0.4 Ml Syr) 40 mg SQ Q24H [facility] Stop: 03/09/24 17:14 Last Admin: 02/08/24 18:02 Dose: 40 mg Documented By: [facility] Discontinued Medications Ioversol (Optiray 320 125ml) 112 ml IV ONCE ONE Stop: 02/08/24 11:20 Last Admin: 02/08/24 11:19 Dose: 112 ml Documented By: RHIANNON Potassium Chloride (Potassium Chloride Crtab 20 Meq Tabcr) 40 meq PO NOW STA Stop: 02/08/24 13:44 Last Admin: 02/08/24 14:03 Dose: 40 meq Documented By: [facility] Data Radiologist's Impression: Abdomen/Pelvis CT 02/08/24 10:17 CT OF THE ABDOMEN AND PELVIS WITH CONTRAST CLINICAL HISTORY: Right flank pain, change in mental status COMPARISON STUDY: CT of the abdomen and pelvis December 10, 2021. KUB September 05, 2022. TECHNIQUE: Following IV administration of 112 mL of Optiray, axial images of the abdomen and pelvis were obtained from the lung bases to the proximal femurs. Images were reviewed in the axial, sagittal, and coronal planes. IV contrast was administered without complication. Automated exposure control was utilized for the study. A dose lowering technique was utilized adhering to the principles of ALARA. CT DOSE: 636.9 mGy.cm FINDINGS: There are healing posterior right 10th and 11th rib fractures. No pneumatosis, free air or portal venous gas is present. The gallbladder is mildly distended. There is no pericholecystic infiltration. There are left-sided parapelvic cysts. Adrenal glands, spleen, liver and right kidney are unremarkable with exception of a right adrenal cyst. There is no hydronephrosis. Postoperative findings consistent with sigmoid resection. There is no evidence for a bowel obstruction. Trace ascites is present. Moderate stool within the colon is present. The appendix is not definitively identified. There is no lymphadenopathy. There are no fluid collections. No acute fractures are identified. IMPRESSION: 1. No bowel obstruction. No bowel wall thickening. Moderate stool within the colon. 2. Trace ascites within the abdomen and pelvis. No fluid collections. 3. No urinary calculi or hydronephrosis. Left-sided parapelvic cysts. 4. Healing posterior right 10th and 11th rib fractures which are subacute to chronic. ACT 112: Negative or not required by law. Electronically signed by: Gabino Ford M.D. 02/08/2024 12:[address] 02/08/24 10:17 CT OF THE HEAD WITHOUT CONTRAST CLINICAL HISTORY: Hallucinations, change in mental status COMPARISON STUDY: MRI of the brain November 24, 2017. Head CT and CTA of the head June 25, 2023. TECHNIQUE: Helical axial images of the head were obtained without IV contrast. Automated exposure control was utilized for the study. A dose lowering technique was utilized adhering to the principles of ALARA. FINDINGS: No acute intracranial hemorrhage, midline shift or mass effect is present. Atrophy and mild small vessel disease is again noted. The appearance of the brain is unchanged. The ventricular system is unremarkable. The basal cisterns are patent. No extra-axial collections are present. There are no findings to suggest acute dural sinus thrombosis or acute territorial infarct. No significant calvarial abnormalities are present. Visualized portions of the sinuses and mastoid air cells are clear. IMPRESSION: No acute intracranial findings. ACT 112: Negative or not required by law. Electronically signed by: Gabino Ford M.D. 02/08/2024 11:54 AM Chest CTA 02/08/24 10:18 CT angio chest PE protocol CLINICAL HISTORY: SOB, recent COVID, eval for PE TECHNIQUE: Multidetector row helical CT of the chest was performed with angiographic protocol. Coronal and sagittal reformations were obtained. Coronal and sagittal MIPS were obtained from the axial data set and were submitted for review. Automated dose lowering techniques and/or adjustment according to patient size were utilized for this exam. CT DOSE: 644.31 mGy.cm Comparison: Comparison is made to CT chest 10/05/2021 FINDINGS: Lungs and pleura: Normal. Heart and pericardium: Heart size is normal. No pericardial effusion. Vessels: No evidence of pulmonary embolism. Mediastinum and irish: Subcentimeter lymph nodes are seen. Chest wall and lower neck: Subcentimeter lower cervical nodes are seen. Abdomen: For findings below the diaphragm, please refer to CT of the abdomen dated the same. Bones: Degenerative changes in the thoracic spine. IMPRESSION: No acute abnormality and in particular no evidence of pulmonary embolus. ACT 112: Negative or not required by law. Electronically signed by: Jackson Hester M.D. 02/08/2024 11:50 AM Discharge Plan Visit Data Chief Complaint: Altered Mental Status Stated Complaint: HALLUCINATIONS, THINKING THINGS ARE THERE WHEN NOT ED Provider: Tiffanie Flores ED Midlevel Provider: Starla Vizcrara Discharge Problem: Altered mental status, Visual hallucinations, Abnormal weight loss, COVID-19 Patient Disposition: Admitted As Inpatient Condition: Good Discharge Instructions Interventions: ED Discharge Assessment Last Done: 02/08/24 17:08 Discharge Problem: Altered mental status Qualifiers: Altered mental status type: unspecified Qualified Code(s): R41.82 - Altered mental status, unspecified
[2024-02-08 10:50] LABS: Basophils # (auto) 0.05 K/uL (0.00-0.20); Basophils % (auto) 1.2 %; Eosinophils # (auto) 0.11 K/uL (0.00-0.50); Eosinophils % (auto) 2.6 %; Hematocrit (blood only) 34.6 % (37.0-47.0); Immature Granulocytes # (auto) 0.03 K/uL (0.01-0.20); Immature Granulocytes % (auto) 0.7 %; Lymphocytes # (auto) 1.05 K/uL (1.20-3.40); Lymphocytes % (auto) 25.1 %; Mean Corpuscular Hemoglobin 25.4 pg (25.0-34.0); Mean Corpuscular Hgb Conc 31.8 g/dL (32.0-36.0); Mean Corpuscular Volume 79.9 fL (80.0-100.0); Mean Platelet Volume 9.8 fL (9.4-12.4); Monocytes # (auto) 0.58 K/uL (0.11-0.59); Monocytes % (auto) 13.8 %; Neutrophils # (auto) 2.37 K/uL (1.40-6.50); Neutrophils % (auto) 56.6 %; Platelet Count 219 K/uL (130-400); RDW Coefficient of Variation 17.1 % (11.5-14.5); RDW Standard Deviation 49.4 fL (36.4-46.3); Red Blood Count 4.33 M/uL (4.20-5.40); White Blood Count 4.19 K/ul (4.8-10.8)
[2024-02-08 10:59] LABS: Albumin Globulin Ratio 1.3 (0.9-2); Albumin Level 3.7 gm/dl (3.4-5.0); BUN Creatinine Ratio 10.4 (10-20); Bilirubin,Total 0.5 mg/dl (0.2-1.0); Calcium 9.5 mg/dl (8.6-10.3); Creatinine Clr Calc Pharmacy 38.9 ml/min; Globulin 2.9 gm/dl (2.5-4.0); Potassium 3.4 mmol/L (3.5-5.1); Total Protein 6.6 gm/dl (6.0-8.3)
[2024-02-08 11:07] LABS: Partial Thromboplastin Ratio 1.3; Partial Thromboplastin Time 34 Seconds (21-31); Prothrombin Time 11.2 Seconds (9.0-12.0)
[2024-02-08 11:15] LABS: Thyroid Stimulating Hormone 1.673 uIu/ml (0.300-4.500)
[2024-02-08] MEDS: OPTIRAY 320 125ml IV ONE (11:19)
--- NOTE | 2024-02-08 11:52 | CT Scan Report ---
CT angio chest PE protocol CLINICAL HISTORY: SOB, recent COVID, eval for PE TECHNIQUE: Multidetector row helical CT of the chest was performed with angiographic protocol. James l and sagittal reformations were obtained. Coronal and sagittal MIPS were obtained from the axial delmer a set and were submitted for review. Automated dose lowering techniques and/or adjustment according to patient size were utilized for this exam. CT DOSE: 644.31 mGy.cm Comparison: Comparison is made to CT chest 10/05/2021 FINDINGS: Lungs and pleura: Normal. Heart and pericardium: Heart size is normal. No pericardial effusion. Vessels: No evidence of pulmonary embolism. Mediastinum and irish: Subcentimeter lymph nodes are seen. Chest wall and lower neck: Subcentimeter lower cervical nodes are seen. Abdomen: For findings below the diaphragm, please refer to CT of the abdomen dated the same. Bones: Degenerative changes in the thoracic spine. IMPRESSION: No acute abnormality and in particular no evidence of pulmonary embolus. ACT 112: Negative or not required by law. Electronically signed by: Jackson Hester M.D. 02/08/2024 11:50 AM
--- NOTE | 2024-02-08 11:56 | CT Scan Report ---
CT OF THE HEAD WITHOUT CONTRAST CLINICAL HISTORY: Hallucinations, change in mental status COMPARISON STUDY: MRI of the brain November 24, 2017. Head CT and CTA of the head June 25, 2023. TECHNIQUE: Helical axial images of the head were obtained without IV contrast. Automated exposure con trol was utilized for the study. A dose lowering technique was utilized adhering to the principles o f ALARA. FINDINGS: No acute intracranial hemorrhage, midline shift or mass effect is present. Atrophy and mild small vessel disease is again noted. The appearance of the brain is unchanged. The ventricular syste m is unremarkable. The basal cisterns are patent. No extra-axial collections are present. There are n o findings to suggest acute dural sinus thrombosis or acute territorial infarct. No significant kaylyn rial abnormalities are present. Visualized portions of the sinuses and mastoid air cells are clear. IMPRESSION: No acute intracranial findings. ACT 112: Negative or not required by law. Electronically signed by: Gabino Ford M.D. 02/08/2024 11:54 AM
--- NOTE | 2024-02-08 12:06 | CT Scan Report ---
CT OF THE ABDOMEN AND PELVIS WITH CONTRAST CLINICAL HISTORY: Right flank pain, change in mental status COMPARISON STUDY: CT of the abdomen and pelvis December 10, 2021. KUB September 05, 2022. TECHNIQUE: Following IV administration of 112 mL of Optiray, axial images of the abdomen and pelvis w ere obtained from the lung bases to the proximal femurs. Images were reviewed in the axial, sagittal, and coronal planes. IV contrast was administered without complication. Automated exposure control w as utilized for the study. A dose lowering technique was utilized adhering to the principles of LIAM Amaro. CT DOSE: 636.9 mGy.cm FINDINGS: There are healing posterior right 10th and 11th rib fractures. No pneumatosis, free air or portal venous gas is present. The gallbladder is mildly distended. There is no pericholecystic infilt ration. There are left-sided parapelvic cysts. Adrenal glands, spleen, liver and right kidney are unr emarkable with exception of a right adrenal cyst. There is no hydronephrosis. Postoperative findings consistent with sigmoid resection. There is no evidence for a bowel obstruction. Trace ascites is pre sent. Moderate stool within the colon is present. The appendix is not definitively identified. There is no lymphadenopathy. There are no fluid collections. No acute fractures are identified. IMPRESSION: 1. No bowel obstruction. No bowel wall thickening. Moderate stool within the colon. 2. Trace ascites within the abdomen and pelvis. No fluid collections. 3. No urinary calculi or hydronephrosis. Left-sided parapelvic cysts. 4. Healing posterior right 10th and 11th rib fractures which are subacute to chronic. ACT 112: Negative or not required by law. Electronically signed by: Gabino Ford M.D. 02/08/2024 12:04 PM
--- NOTE | 2024-02-08 12:19 | Electrocardiogram Report ---
Test Reason : Blood Pressure : */* mmHG Vent. Rate : 70 BPM Atrial Rate : 70 BPM P-R Int : 180 ms QRS Dur : 90 ms QT Int : 410 ms P-R-T Axes : 73 -9 66 degrees QTcB Int : 442 ms Normal sinus rhythm Normal ECG When compared with ECG of 25-Jun-2023 16:23, No significant change was found Confirmed by Saud Saab ([id number]) on 02/08/2024 12:18:18 PM Referred By: REFERRED SELF Confirmed By: Saud Saab
[2024-02-08 12:24] LABS: Appearance Urine Clear (Clear); Bilirubin Urine Negative (Negative); Blood Urine Negative (Negative); Color Urine Yellow; Glucose Urine UA Negative (Negative); Ketones Urine Negative (Negative); Leukocyte Esterase Urine Negative (Negative); Nitrite Urine Negative (Negative); Protein Urine Negative (Negative); Specific Gravity Urine 1.021 (1.000-1.030); Urobilinogen Urine Negative (Negative)
--- NOTE | 2024-02-08 13:19 | History & Physical Report ---
Date of Service February 08, 2024 Assessment & Plan (1) Altered mental status: Plan: Altered mental status Patient with visual hallucinations, confusion suspected metabolic encephalopathy which began within 12 hours of stopping Paxlovid after being treated for COVID. He has also had return of some chills although no fever. Suspect rebound symptoms at the end of her course of Paxlovid, and COVID encephalopathy. Beginning to clear, not completely at baseline per Due to marked confusion and concern for her was requested for overnight observation. Patient is also anemic with hypokalemia and poor oral intake Patient recently diagnosed with COVID 01/28/2024 and completed a 5-day course of Paxlovid. No rebound fevers CTAchest with no acute abnormalities CThead: No acute findings CTA/P with healing posterior rib fractures subacute/chronic, trace ascites otherwise no acute findings. UA is not infected appearing TSH is normal There is no elevated anion gap, creatinine is at baseline, she is not volume contracted Given marked hallucinations and deviation from baseline with unclear cause patient is recommended for observation in the hospital, trend of fever curve Delirium precautions. Blood cultures drawn, antibiotics deferred in absence of clear infectious cause Home medications include fluvoxamine, lamotrigine without recent change. Continued Patient is on zolpidem at bedtime as needed. Will continue this due to risk of withdrawal however may also contribute to her confusion Denies history of regular alcohol use (2) COVID-19: Plan: Recent COVID-19 S/p 5 days of Paxlovid Diagnosed by home kit 01/28/2024 Has a residual dry cough. Will keep on COVID isolation. Discussed w/ infection control. Reasonable to obtain quad screen given encephalopathy and dry cough. Recommend continuing on isolation precautions at this time. History she recommendations (3) Hypothyroidism: Plan: TSH normal, continue Synthroid (4) Weight loss: Plan: Weight loss Unexplained. Patient has had an increase in depression as outpatient which was suspected as cause. Colonoscopy within the last year normal. Patient did have some lymphadenopathy which was stable without evidence of malignancy Total serum protein is normal Patient is with macrocytic anemia. Iron studies pending. Would likely benefit from a dose of Venofer prior to discharge Patient has not been on any appetite stimulants, notes appetite has been very challenging for her. Recommend a trial of olanzapine versus Marinol for appetite stimulation; however would defer these at this time due to concerns of encephalopathy (5) Anemia: Plan: Microcytic anemia, chronic without acute bleeding History of colostomy with reversal s/p perforated diverticulitis 2021. Patient reports colonoscopy in the last year was normal. No evidence of malignancy, attempting to obtain records from [facility] [place] No iron studies on file, ferritin/iron panel/B12/folate ordered Plan DVT prophylaxis: Lovenox Disposition: Medical/surgical CODE STATUS: Full code Diet: Regular History of Present Illness Primary Care Provider: Hilary Alvarez MD Johana Alexander is a 73-year-old female with a past medical history of metabolic ence phalopathy with UTIs, recent COVID infection,, recent weight loss of unclear origin, depression, hypothyroidism, hypertension, hypokalemia who presents for altered mental status. Patient recently diagnosed with COVID 01/28/2024 and had been on Paxlovid for 5 days. Had been recovering however developed visual hallucinations over the last day and a half, believing people are in her home that were not and asking to talk to her parents who are already . Johana is seen with her at the bedside. She reports that she was doing well although had been losing some weight and endorses some depression and poor appetite with weight loss. She got COVID diagnosed by home test on 01/27 and had chills and a dry nonproductive cough as her presenting symptoms. She reports she feels she has recovered well from that, was on Paxlovid which she just stopped taking on Thursday. On Thursday evening/Thursday her reports that she became very confused, was not oriented, kept trying to call relatives who had already , and had visual hallucinations of other people being in the house that were not there. Johana reports she does not remember this, but feels back to her normal baseline now. Her reports that she seems mostly back to normal, although did have some confusion with conversations earlier today was no longer hallucinating and seems oriented. Johana reports that she continues to have some chills but overall feels better from COVID, has a lingering dry cough which is mostly improved and productive for just a small amount of white/clear sputum. No diarrhea. No abdominal pain. No dysuria. No headache. No nuchal rigidity, no photo/phono sensitivity Medical History: Reviewed Medications: Reviewed Surgical History: Reviewed Family history: Reviewed Allergies: Reviewed Social History: Denies tobacco/alcohol use Code Status: DNR/DNI Allergies Allergy/AdvReac Type Severity Reaction Status Date / Time lisinopril AdvReac Intermediate Cough Verified 01/28/24 16:20 Home Medications Medication Instructions Recorded Confirmed Type buspirone 15 mg tablet 10 mg PO TID 12/18/18 02/08/24 History zolpidem 12.5 mg tablet,extended 12.5 mg PO HS PRN insomnia #30 tabs 05/30/19 02/08/24 Rx release,multiphase valacyclovir 1 gram tablet 2,000 mg PO BID PRN Cold Sores 10/03/20 02/08/24 History (Valtrex) lamotrigine 100 mg tablet 150 mg PO BID 07/01/21 02/08/24 History (Lamictal) multivitamin (Daily Multi-Vitamin 1 tab PO QPM 07/01/21 02/08/24 History tablet) ergocalciferol (vitamin D2) 1,250 1,250 mcg PO WK 09/19/22 02/08/24 History mcg (50,000 unit) capsule fluvoxamine 50 mg tablet 50 mg PO HS 09/19/22 02/08/24 History fremanezumab-vfrm 225 mg/1.5 mL 225 mg (1.5 mL) subcut MONTHLY 30 02/16/23 02/08/24 Rx subcutaneous syringe (Ajovy days #1.5 mL Syringe) rimegepant 75 mg disintegrating 75 mg PO ONCE PRN migraine 02/16/23 02/08/24 Rx tablet (Nurtec ODT) headache #8 tabs acetaminophen 500 mg tablet 1,000 mg PO Q6H PRN Pain 06/21/23 02/08/24 History (Tylenol Extra Strength) levothyroxine 75 mcg tablet 75 mcg PO QAM #90 tabs 07/01/23 02/08/24 Rx omeprazole 20 mg capsule,delayed 20 mg PO BID #180 caps 09/04/23 02/08/24 Rx release verapamil 200 mg capsule 24hr 200 mg PO QAM #30 caps 11/27/23 02/08/[address],ext.release atorvastatin 10 mg tablet 10 mg PO HS #90 tabs 01/25/24 02/08/24 Rx Past Med/Surg History Problem List (Updated 02/08/24 @ 13:14 by Manav Castro MD) Weight loss COVID-19 Altered mental status Depression (Chronic) Vitamin B12 deficiency (Chronic) Tinnitus (Chronic) Temporomandibular joint pain (Chronic) Secondary hyperparathyroidism (Chronic) Postmenopausal osteoporosis (Chronic) 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) Hypothyroidism (Chronic) Hypertension (Chronic) Hypercholesterolemia (Chronic) Herpes simplex (Chronic) Classic migraine with aura (Chronic) Chronic rhinitis (Chronic) Chronic bronchitis (Chronic) Chronic back pain (Chronic) Anxiety (Chronic) Allergic rhinitis (Chronic) Medication overuse headache Urinary incontinence Chronic constipation Tubular adenoma Polyarthritis (Chronic) Migraine (Chronic) Insomnia (Chronic) IBS (irritable bowel syndrome) (Chronic) Fibromyalgia (Chronic) Disc degeneration, lumbar (Chronic) Cervical radiculopathy (Chronic) Acid reflux (Chronic) Medical History History of COVID-19 Urinary retention Diverticulitis of large intestine with perforation and abscess History of TMJ disorder Hyperlipidemia Hypertension Hypothyroidism Anxiety and depression Surgical History History of colostomy reversal History of creation of ostomy History of bowel resection S/P left cataract extraction History of anesthesia reaction History of colonoscopy Hx of melanoma excision History of tooth extraction History of ear surgery History of appendectomy History of hysterectomy History of tonsillectomy Family History Mother Ovarian cancer Depression Gastroesophageal reflux disease Poliomyelitis Father No pertinent family history Family history of reaction to anesthesia Sister Family history of diabetes mellitus Denies family history of Prostate cancer Myocardial infarction Breast cancer Colorectal cancer Social History Smoking Status: Former smoker Tobacco Type: Cigarettes Age Started Using Tobacco: 21; Age Quit Using Tobacco: 31; packs per day: 0.5; Second Hand Exposure: No; Do You Dip or Chew Tobacco: No; Hx Alcohol Use: No Hx Substance Use: No Preferred Language: Nigerien Communication Ability: Effective Visual Impairment: No Limitations Hearing Ability: Hard of Hearing Field Crop Farmworker Required: No Beliefs That Will Affect Care: None marital status: Current Living Situation: Spouse current occupational status: employed current occupation: ARTIST Feels Safe at Home: Yes Childhood Exposure to Second-Hand Smoke: No Diet: regular Diet Comment: regular during the past year weight has: increased > 10 lbs Dental Care, Regularly: Yes Physical Activity Frequency: Does not Exercise Seatbelt Use: always Sunscreen Use: Yes Assistive Devices: Denture - Upper and Glasses Physical Exam Physical Exam: General: A&Ox3. NAD. Cooperative. HEENT: Atraumatic, normocephalic. Vision and hearing grossly intact Pulm: CTAB A&P. -wheezes, -rales, -rhonchi. Symmetrical chest rise. No increased work of breathing. No respiratory distress. Cardiac: RRR, -mrg. Radial pulses intact and symmetrical. Abdominal: Nontender, nondistended, soft. BS present. Extremities: Warm and dry. Moves all extremities equally. Sensation still extremity strength are grossly intact bilaterally and without asymmetry Results & Data Results & Data Vital Signs (Past 12 Hours) Vital Signs Temp Pulse Pulse Resp BP BP Pulse Ox 02/08/24 12:42 72 20 02/08/24 12:39 74 22 168/97 H 02/08/24 12:21 71 15 95 02/08/24 12:12 70 16 94 02/08/24 12:03 70 17 162/91 H 95 02/08/24 11:57 71 22 98 02/08/24 11:06 73 22 94 02/08/24 11:01 71 16 153/91 H 94 02/08/24 11:00 153/91 H 02/08/24 11:00 94 02/08/24 10:54 77 19 02/08/24 10:30 158/92 H 02/08/24 10:26 72 18 96 02/08/24 10:22 77 02/08/24 10:21 74 96 02/08/24 09:46 36.1 C L 76 20 146/86 H 100 O2 Del Method 02/08/24 12:42 02/08/24 12:39 02/08/24 12:21 02/08/24 12:12 02/08/24 12:03 02/08/24 11:57 02/08/24 11:06 02/08/24 11:01 Room Air 02/08/24 11:00 02/08/24 11:00 Room Air 02/08/24 10:54 02/08/24 10:30 02/08/24 10:26 Room Air 02/08/24 10:22 02/08/24 10:21 02/08/24 09:46 Room Air PG Care Time/CCT Total # of Minutes Spent Total Time Spent with Patient: Total time spent is greater than 50% in coordination of care (as documented) at patient's floor/unit and/or counseling patient: Coding Level of Care Code 86714 INT INP/OBS CARE 3/75MIN Diagnoses Altered mental status R41.82 COVID-19 U07.1 Hypothyroidism E03.9 Weight loss R63.4 Anemia D64.9
[2024-02-08] MEDS: POTASSIUM CHLORIDE CRTAB 20 MEQ TABCR PO STA (14:03)
[2024-02-08 14:13] LABS: Influenza A virus by PCR Negative (Neg); Influenza B virus by PCR Negative (Neg); RSV by PCR Negative (Neg); SARS CoV2 RNA(COVID-19) Ceph POSITIVE (Negative)
--- NOTE | 2024-02-08 15:25 | Emergency Department Note ---
ED Visit Note I was consulted by the Advanced Practice Provider. I personally approved the management plan and take responsibility for the patient management. This includes the aspects of: -History/Physical -MDM -I independently interpreted the following studies:Studies and results .
[2024-02-08] MEDS ORDERED: POLYETHYLENE (MIRALAX) 17 GM PACK PO PRN (17:15)
[2024-02-08] MEDS: ENOXAPARIN INJ 40 MG/0.4 ML SYR SQ SCH (18:02)
[2024-02-08] MEDS: busPIRone 5 MG TAB PO SCH (18:02)
[2024-02-08 18:23] LABS: Ferritin 13.2 ng/ml (8-388)
[2024-02-08 19:31] LABS: Folate (Folic Acid),Ser orPlas 14.09 ng/ml (>5.38)
[2024-02-08] MEDS: ATORVASTATIN 10 MG TAB PO SCH (21:17)
[2024-02-08] MEDS: fluvoxaMINE MALEATE 50 MG TAB PO SCH (21:17)
[2024-02-08] MEDS: MULTIVITAMIN TAB PO SCH (21:18)
[2024-02-08] MEDS: lamoTRIgine 25 MG TAB PO SCH (21:18)
[2024-02-08] MEDS: lamoTRIgine 100 MG TAB PO SCH (21:18)
[2024-02-08] MEDS: PANTOprazole 40 MG TAB PO SCH (21:19)
[2024-02-08] MEDS: ACETAMINOPHEN 500 MG TAB PO PRN (21:23)
[2024-02-08 23:32] VITALS: TEMP 97.9
[2024-02-08] MEDS: ZOLPIDEM TARTRATE 5 MG TAB PO ONE (23:39)
[2024-02-09] MEDS: LEVOTHYROXINE SODIUM 75 MCG TABLET PO SCH (05:46)
[2024-02-09 07:23] LABS: Basophils # (auto) 0.03 K/uL (0.00-0.20); Eosinophils % (auto) 3.2 %; Hematocrit (blood only) 33.4 % (37.0-47.0); Hemoglobin 10.8 g/dl (12.0-16.0); Immature Granulocytes # (auto) 0.02 K/uL (0.01-0.20); Immature Granulocytes % (auto) 0.6 %; Lymphocytes # (auto) 0.78 K/uL (1.20-3.40); Lymphocytes % (auto) 25.3 %; Mean Corpuscular Hemoglobin 25.8 pg (25.0-34.0); Mean Corpuscular Hgb Conc 32.3 g/dL (32.0-36.0); Mean Corpuscular Volume 79.7 fL (80.0-100.0); Mean Platelet Volume 8.5 fL (9.4-12.4); Monocytes # (auto) 0.44 K/uL (0.11-0.59); Monocytes % (auto) 14.3 %; Neutrophils # (auto) 1.71 K/uL (1.40-6.50); Neutrophils % (auto) 55.6 %; Platelet Count 188 K/uL (130-400); RDW Coefficient of Variation 17.4 % (11.5-14.5); RDW Standard Deviation 50.3 fL (36.4-46.3); Red Blood Count 4.19 M/uL (4.20-5.40); White Blood Count 3.08 K/ul (4.8-10.8)
[2024-02-09 07:45] LABS: BUN Creatinine Ratio 12.2 (10-20); Creatinine Clr Calc Pharmacy 42.6 ml/min; Potassium 3.9 mmol/L (3.5-5.1)
[2024-02-09 08:17] VITALS: BP 173/84; PULSE 77; RESP 16; O2SAT 95
--- NOTE | 2024-02-09 11:32 | Discharge Summary ---
<Statement entered by Vielka Orellana MD - 02/09/24 17:39> I have reviewed vital signs, chart notes, labs and imaging. I have also discussed the management of the patient with the DAISY and I agree with the exam findings documented in the history and physical examination and the documented assessment and plan unless otherwise stated below. Would recommend slow tapering of Ambien as outpatient if at all possible, especially given this episode of encephalopathy/delirium and advanced age, failure to thrive with weight loss. Discharge Summary Date of Service February 09, 2024 Principal Dx & Hospital Course #1 = Principal Diagnosis (1) Altered mental status: Presented with altered mental status and visual hallucinations - Recent Covid, tested positive 01/27 with home test - Suspected metabolic encephalopathy which began within 12 hours of stopping Paxlovid after being treated for COVID. She had also had return of some chills, although no fever. Suspect rebound symptoms at the end of her course of Paxlovid, and COVID encephalopathy CTAchest with no acute abnormalities CThead: No acute findings CTA/P with healing posterior rib fractures subacute/chronic, trace ascites otherwise no acute findings. UA is not infected appearing TSH is normal No elevated anion gap, creatinine at baseline, not volume contracted - Encephalopathy resolved, A&O x4, no subjective or observed hallucinations - PCP follow-up appointment scheduled for 02/11 - Of note, patient takes Zolpidem ER 12.5 mg HS -- this could be contributing to her confusion as well > Consider extended taper off this medication given female gender and age >65 y/o (2) COVID-19: Recent COVID-19 S/p 5 days of Paxlovid Diagnosed by home kit 01/28/2024 Has a subjective residual dry cough - Quad screen negative for RSV, Influenza A, and Influenza B (3) Hypothyroidism: TSH normal at 1.673, continue Synthroid (4) Weight loss: Weight loss Unexplained. Patient has had an increase in depression as outpatient which was suspected as cause. Colonoscopy within the last year normal. Patient did have some lymphadenopathy which was stable without evidence of malignancy Total serum protein is normal Patient is with microcytic anemia. Iron studies normal. Patient has not been on any appetite stimulants, notes appetite has been very challenging for her. - Recommend a trial of olanzapine versus Marinol for appetite stimulation; however will defer at this time due to recent encephalopathy (5) Anemia: Microcytic anemia, chronic without acute bleeding History of colostomy with reversal s/p perforated diverticulitis 2021. Patient reports colonoscopy in the last year was normal. No evidence of malignancy, attempting to obtain records from [facility] Iron panel WNL, ferritin WNL, B12 WNL, folate WNL Plan CODE STATUS: Full code Notes For Next Care Provider Presented with altered mental status, suspect metabolic encephalopathy in setting of recent discontinuation of Paxlovid for COVID (tested positive with home kit 01/27). Of note, recent unintentional weight loss. Consider trial of olanzapine versus Marinol for appetite stimulation. Additionally, patient takes zolpidem ER 12.5 mg at bedtime, which could be contributing to confusion as well. Given female gender and age greater than 65 years old, recommend extended taper off this medication. PCP follow-up appointment scheduled for 02/11 Medication Changes From Visit None Admission HPI Per Admitting Provider Johana Alexander is a 73-year-old female with a past medical history of metabolic encephalopathy with UTIs, recent COVID infection,, recent weight loss of unclear origin, depression, hypothyroidism, hypertension, hypokalemia who presents for altered mental status. Patient recently diagnosed with COVID 01/28/2024 and had been on Paxlovid for 5 days. Had been recovering however developed visual hallucinations over the last day and a half, believing people are in her home that were not and asking to talk to her parents who are already . Johana is seen with her at the bedside. She reports that she was doing well although had been losing some weight and endorses some depression and poor appetite with weight loss. She got COVID diagnosed by home test on 01/27 and had chills and a dry nonproductive cough as her presenting symptoms. She reports she feels she has recovered well from that, was on Paxlovid which she just stopped taking on Thursday. On Thursday evening/Thursday her reports that she became very confused, was not oriented, kept trying to call relatives who had already , and had visual hallucinations of other people being in the house that were not there. Johana reports she does not remember this, but feels back to her normal baseline now. Her reports that she seems mostly back to normal, although did have some confusion with conversations earlier today was no longer hallucinating and seems oriented. Johana reports that she continues to have some chills but overall feels better from COVID, has a lingering dry cough which is mostly improved and productive for just a small amount of white/clear sputum. No diarrhea. No abdominal pain. No dysuria. No headache. No nuchal rigidity, no photo/phono sensitivity Medical History: Reviewed Medications: Reviewed Surgical History: Reviewed Family history: Reviewed Allergies: Reviewed Social History: Denies tobacco/alcohol use Code Status: DNR/DNI Admission Exam Per Admitting Provider General: A&Ox3. NAD. Cooperative. HEENT: Atraumatic, normocephalic. Vision and hearing grossly intact Pulm: CTAB A&P. -wheezes, -rales, -rhonchi. Symmetrical chest rise. No increased work of breathing. No respiratory distress. Cardiac: RRR, -mrg. Radial pulses intact and symmetrical. Abdominal: Nontender, nondistended, soft. BS present. Extremities: Warm and dry. Moves all extremities equally. Sensation still extremity strength are grossly intact bilaterally and without asymmetry Discharge Exam General: No acute distress, nondiaphoretic, well-developed, well-nourished. Skin: The skin was without rashes, erythema, edema, or bruising. Cardiac: Regular rate and rhythm without murmurs gallops or rubs. Pulm: Clear to auscultation bilaterally without wheezes, rales or rhonchi. No respiratory distress. 95% on room air. Abdominal: Soft, nontender, nondistended. Bowel sounds present. Neuro: A&O x3. No focal neurological deficits. Discharge Plan Discharge Items Patient Disposition: Home - Self-Care Reason For Visit: ENCEPHALOPATHY Discharge Diagnosis: Acute metabolic encephalopathy, resolved Condition on Discharge: Good Activity: Resume your previous activity Non-emergency contact: Primary Care Provider Call non-emergency contact if: you have any medication questions and your symptoms worsen Follow-up/Referrals: Hilary Alvarez MD [Primary Care Provider] - 02/12/24 1:20 pm Diet: Regular Addtl Attending Provider Instructions: Mrs. Alexander, Harsha were admitted to the hospital due to an acute encephalopathy. This is when you have an altered mental status (confusion). You also had some visual halluci nations. Your workup was negative, including: CT of your head, CTA of your chest, CT of your abdomen/pelvis, urinalysis, and lab work. I suspect this was a rebound presentation at the end of your course of Paxlovid. Since your confusion and hallucinations have fully resolved, you are being discharged home from the hospital. Continue your home medications as prescribed. There have been no medication changes from this hospitalization. Follow-up with your PCP. Your appointment is scheduled for 02/12/2024 at 1:20 PM. Please return to the hospital if you experience any of the following: Violent behavior behavior to hard to manage at home, new hallucinations or delusions, severe headache, numbness or weakness of the face/arm/leg, slurred speech or trouble speaking/walking/seeing, lightheadedness/dizziness, fainting/passing out, seizure, shortness of breath, or chest pain. It was a pleasure taking care of you while you were in the hospital, Vielka Biggs PA-C Pending Studies at Discharge: No Stand-Alone Forms: [facility], Smoking Cessation Medications and DC Order Prescriptions: Continued zolpidem 12.5 mg tablet,ext release multiphase 12.5 mg PO HS PRN (Reason: insomnia) Qty: 30 0RF omeprazole 20 mg capsule,delayed release(DR/EC) 20 mg PO BID Qty: 180 1RF verapamil 200 mg capsule, [address] 200 mg PO QAM Qty: 30 5RF Patient Comments: QAM atorvastatin 10 mg tablet 10 mg PO HS Qty: 90 3RF Rx Instructions: TAKE 1 TABLET BY MOUTH AT BEDTIME lamotrigine [Lamictal] 100 mg tablet 150 mg PO BID multivitamin [Daily Multi-Vitamin] Tablet 1 tab PO QPM Ajovy Syringe 225 mg/1.5 mL syringe 225 mg SQ MONTHLY 30 Days Qty: 1.5 11RF Rx Instructions: Dispense syringe please, not autoinjector. Nurtec ODT 75 mg tablet,disintegrating 75 mg PO ONCE PRN (Reason: migraine headache) Qty: 8 5RF buspirone 15 mg tablet 10 mg PO TID levothyroxine 75 mcg tablet 75 mcg PO QAM Qty: 90 3RF Rx Instructions: TAKE 1 TABLET BY MOUTH EVERY DAY valacyclovir [Valtrex] 1 gram tablet 2,000 mg PO BID PRN (Reason: Cold Sores) Patient Comments: NOT CURRENTLY TAKING Rx Instructions: Start SANDRA after start of symptoms ergocalciferol (vitamin D2) 1,250 mcg (50,000 unit) Capsule 1,250 mcg PO WK Patient Comments: takes on thursday Rx Instructions: SUNDAYS fluvoxamine 50 mg Tablet 50 mg PO HS acetaminophen [Tylenol Extra Strength] 500 mg Tablet 1,000 mg PO Q6H PRN (Reason: Pain) Discharge Orders: Discharge Order (Routine); Ordered 02/09/24 Ordered By: Vielka Biggs Admission Data Admit Date/Time: 02/08/24 13:42 Attending Provider: Vielka Orellana Admit Provider: Manav Castro Primary Care Provider: Hilary Alvarez Other Providers: Manav Castro Hospital Stay Data Consultations 02/08/24 13:07 ED Decision to Admit Stat Diagnostic Imagining Performed Abdomen/Pelvis CT 02/08/24 10:17 CT OF THE ABDOMEN AND PELVIS WITH CONTRAST CLINICAL HISTORY: Right flank pain, change in mental status COMPARISON STUDY: CT of the abdomen and pelvis December 10, 2021. KUB September 05, 2022. TECHNIQUE: Following IV administration of 112 mL of Optiray, axial images of the abdomen and pelvis were obtained from the lung bases to the proximal femurs. Images were reviewed in the axial, sagittal, and coronal planes. IV contrast was administered without complication. Automated exposure control was utilized for the study. A dose lowering technique was utilized adhering to the principles of ALARA. CT DOSE: 636.9 mGy.cm FINDINGS: There are healing posterior right 10th and 11th rib fractures. No pneumatosis, free air or portal venous gas is present. The gallbladder is mildly distended. There is no pericholecystic infiltration. There are left-sided parapelvic cysts. Adrenal glands, spleen, liver and right kidney are unremarkable with exception of a right adrenal cyst. There is no hydronephrosis. Postoperative findings consistent with sigmoid resection. There is no evidence for a bowel obstruction. Trace ascites is present. Moderate stool within the colon is present. The appendix is not definitively identified. There is no lymphadenopathy. There are no fluid collections. No acute fractures are identified. IMPRESSION: 1. No bowel obstruction. No bowel wall thickening. Moderate stool within the col on. 2. Trace ascites within the abdomen and pelvis. No fluid collections. 3. No urinary calculi or hydronephrosis. Left-sided parapelvic cysts. 4. Healing posterior right 10th and 11th rib fractures which are subacute to chronic. ACT 112: Negative or not required by law. Electronically signed by: Gabino Ford M.D. 02/08/2024 12:[address] 02/08/24 10:17 CT OF THE HEAD WITHOUT CONTRAST CLINICAL HISTORY: Hallucinations, change in mental status COMPARISON STUDY: MRI of the brain November 24, 2017. Head CT and CTA of the head June 25, 2023. TECHNIQUE: Helical axial images of the head were obtained without IV contrast. Automated exposure control was utilized for the study. A dose lowering technique was utilized adhering to the principles of ALARA. FINDINGS: No acute intracranial hemorrhage, midline shift or mass effect is present. Atrophy and mild small vessel disease is again noted. The appearance of the brain is unchanged. The ventricular system is unremarkable. The basal cisterns are patent. No extra-axial collections are present. There are no findings to suggest acute dural sinus thrombosis or acute territorial infarct. No significant calvarial abnormalities are present. Visualized portions of the sinuses and mastoid air cells are clear. IMPRESSION: No acute intracranial findings. ACT 112: Negative or not required by law. Electronically signed by: Gabino Ford M.D. 02/08/2024 11:54 AM Chest CTA 02/08/24 10:18 CT angio chest PE protocol CLINICAL HISTORY: SOB, recent COVID, eval for PE TECHNIQUE: Multidetector row helical CT of the chest was performed with angiographic protocol. Coronal and sagittal reformations were obtained. Coronal and sagittal MIPS were obtained from the axial data set and were submitted for review. Automated dose lowering techniques and/or adjustment according to patient size were utilized for this exam. CT DOSE: 644.31 mGy.cm Comparison: Comparison is made to CT chest 10/05/2021 FINDINGS: Lungs and pleura: Normal. Heart and pericardium: Heart size is normal. No pericardial effusion. Vessels: No evidence of pulmonary embolism. Mediastinum and irish: Subcentimeter lymph nodes are seen. Chest wall and lower neck: Subcentimeter lower cervical nodes are seen. Abdomen: For findings below the diaphragm, please refer to CT of the abdomen dated the same. Bones: Degenerative changes in the thoracic spine. IMPRESSION: No acute abnormality and in particular no evidence of pulmonary embolus. ACT 112: Negative or not required by law. Electronically signed by: Jackson Hester M.D. 02/08/2024 11:50 AM Pending Results Patient Have Any Pending Studies at Discharge: No Discharge Instructions Given to Patient (Per Discharging Provider) Mrs. Alexander, Harsha were admitted to the hospital due to an acute encephalopathy. This is when you have an altered mental status (confusion). You also had some visual hallucinations. Your workup was negative, including: CT of your head, CTA of your chest, CT of your abdomen/pelvis, urinalysis, and lab work. I suspect this was a rebound presentation at the end of your course of Paxlovid. Since your confusion and hallucinations have fully resolved, you are being discharged home from the hospital. Continue your home medications as prescribed. There have been no medication changes from this hospitalization. Follow-up with your PCP. Your appointment is scheduled for 02/12/2024 at 1:20 PM. Please return to the hospital if you experience any of the following: Violent behavior behavior to hard to manage at home, new hallucinations or delusions, severe headache, numbness or weakness of the face/arm/leg, slurred speech or trouble speaking/walking/seeing, lightheadedness/dizziness, fainting/passing out, seizure, shortness of breath, or chest pain. It was a pleasure taking care of you while you were in the hospital, Vielka Biggs PA-C Total Time Total Time Spent Total Time Spent (In Minutes): Greater than 30 minutes spent completing this discharge process including direct patient care, medication reconciliation, documentation, review of labs and images, and coordination of care. Coding Level of Care Code 67205 INP/OBS DISCH >30 MIN Diagnoses Altered mental status R41.82 COVID-19 U07.1 Hypothyroidism E03.9 Weight loss R63.4 Anemia D64.9
[2024-02-09] MEDS: VERAPAMIL HCL 180 MG TABCR PO SCH (11:49)
[2024-02-14] MEDS ORDERED: ERGOCALCIFEROL 1250 MCG (50,000 UNITS) CAP PO SCH (09:00)
== END 2024-02-09 13:10 | disposition home or self-care (01) ==
LOC: ED 09:41 → 3W 09:41 → SUATTDRO 13:42 → 3W 17:08